=== PATIENT | male | born 1950 | race African-American/Black ===

== ENCOUNTER 2018-03-03 11:11 | Inpatient (IN) | payer OTHER ==
[2018-03-03] MEDS ORDERED: NA CHLORIDE 0.9% 1,000 ML ONE (12:17)
--- NOTE | 2018-03-03 12:43 | RAD REPORT ---
EXAM DESCRIPTION: CT - Stone Protocol - 03/03/2018 12:30 pm CLINICAL HISTORY: Flank pain. Abd pain;Flank pain COMPARISON: No comparisons TECHNIQUE: Axial images were obtained without oral or IV contrast. Lack of contrast limits solid org an and vascular assessment. The [id number] spans the entirety of the system partially obscuring uppermost abdomen and lung bases. Coronal reformatted images were obtained and reviewed. All CT scans are performed using dose optimization technique as appropriate and may include automated exposure control or mA/KV adjustment according to patient size. FINDINGS: Small bilateral pleural effusions are noted. Mild linear opacities in both posterior lung bases most compatible with subsegmental atelectasis. Imaged portions of the liver and spleen show no suspicious findings on non-contrast imaging.Cholelith iasis. The pancreas and adrenal glands are normal. No pathologic lymphadenopathy in the abdomen or pe lvis. No urinary tract stones or obstructive uropathy. Multiple renal cysts are present bilaterally, greate r on the left. No bowel obstruction, free air, free fluid or abscess. Normal appendix noted.Scattered colonic divert iculosis. Moderate fecal material is retained in the colon. Advanced degenerative change posterior disc bulge at L4-5. Large disc bulge is also suspected at L5-S 1. IMPRESSION: Pronounced degenerative findings are present at L4-5. Small bilateral pleural effusions. Cholelithiasis.
--- NOTE | 2018-03-03 13:26 | RAD REPORT ---
EXAM DESCRIPTION: VASExtrem Venous W Compress Bil03/03/2018 1:00 pm CLINICAL HISTORY: Bilateral leg pain COMPARISON: none FINDINGS: The common femoral, superficial femoral, popliteal and posterior tibial veins bilaterally are compressible and demonstrate augmentation. Doppler demonstrates good flow. A 4 x 1 centimeter Mccarty's cyst is present within the posterior left knee IMPRESSION: No evidence of deep venous thrombosis involving either lower extremity. 4 centimeter left Mccarty's cyst
--- NOTE | 2018-03-03 13:26 | RAD REPORT ---
EXAM DESCRIPTION: Toni Single View03/03/2018 1:10 pm CLINICAL HISTORY: Cough COMPARISON: none FINDINGS: The lungs appear clear of acute infiltrate. The heart is normal size IMPRESSION: No acute abnormalities displayed
[2018-03-03 14:18] LABS: Absolute Lymphocytes (CBC) 1.7 K/uL (0.7-4.9); Absolute Monocytes 0.8 K/uL (0.1-1.3); Basophils % 0.8 % (0-1.3); Eosinophils % 3.6 % (0-4.4); Hematocrit 23.2 % (39.6-49.0); Lymphocytes % 19.2 % (15.3-44.8); MCH 26.1 pg (27.0-35.0); MCV 76.9 fL (80-100); MPV 8.3 fL (7.6-11.3); Monocytes % 9.3 % (3.3-12.3); RBC Red Blood Cell Count 3.02 M/uL (4.33-5.43)
[2018-03-03 14:22] LABS: Protime INR 1.08
--- NOTE | 2018-03-03 14:34 | EKG ---
Test Date: 2018-03-03 Test Time: 12:13:38 Supervisor Painting Department: CRISTIN MEASUREMENT RESULTS: Intervals: Rate: 93 OK: 176 QRSD: 88 QT: 412 QTc: 512 [place]: P: 45 OK: 176 QRS: -3 T: 146 INTERPRETIVE STATEMENTS: Normal sinus rhythm Left ventricular hypertrophy with repolarization abnormality Prolonged QT Abnormal ECG No previous ECG available for comparison Electronically Signed On 03-03-18 14:33:31 CDT by Pool Carrasquillo
[2018-03-03 14:40] LABS: ALT/SGPT 12 U/L (12-78); AST/SGOT 12 U/L (15-37); Albumin 2.5 g/dL (3.4-5.0); Alkaline Phosphatase 60 U/L (45-117); BUN Blood Urea Nitrogen 58 mg/dL (7-18); Bicarbonate 26 mmol/L (21-32); Bilirubin Direct < 0.1 mg/dL (0-0.2); Bilirubin Total 0.3 mg/dL (0.2-1.0); CKMB Creatine Kinase MB 2.9 ng/mL (0.3-3.6); Creatine Phosphokinase 151 U/L (39-308); Glucose Level 136 mg/dL (74-106); Lipase 77 U/L (73-393); Magnesium 2.4 mg/dL (1.8-2.4); NT PRO-BNP 13442 pg/mL (<125); Potassium 3.4 mmol/L (3.5-5.1); Protein, Total 6.4 g/dL (6.4-8.2); Sodium Level 142 mmol/L (136-145)
--- NOTE | 2018-03-03 16:04 | ER ---
Nurse's Notes [facility] Name: Jamie Schulz Jr Age: 67 yrs Sex: Male : 1950 Arrival Date: 03/03/2018 Time: 11:13 Bed 20 Private MD: Out, of [facility] Diagnosis: Dizziness and giddiness;Unspecified kidney failure;Anemia, unspecified;Type 2 diabetes mellitus;Hypokalemia;Pleural effusion in conditions classified elsewhere;Cholelithiasis;Essential (primary) hypertension Presentation: 03/03 11:18 Presenting complaint: Patient states: Basically i keep getting really weak and sg fainting, I have an appointment with in about a week, but i cant wait that long. My Legs are swelling, and painful knee joint, denies trauma or injury, reports SOB at rest. Transition of care: patient was not received from another setting of care. Onset of symptoms was March 03, 2018. Risk Assessment: Do you want to hurt yourself or someone else? Patient reports no desire to harm self or others. Initial Sepsis Screen: Does the patient meet any 2 criteria? No. Patient's initial sepsis screen is negative. Does the patient have a suspected source of infection? No. Patient's initial sepsis screen is negative. Care prior to arrival: None. 11:18 Method Of Arrival: Wheelchair sg 11:18 Acuity: KIANNA 3 sg Triage Assessment: 18:50 General: Behavior is calm, cooperative. aj1 Historical: - Allergies: 11:21 No Known Allergies; sg - PMHx: 11:21 Renal Disease; Anemia; Left Knee Efusion; Essential Hypertension; sg - Immunization history:: Adult Immunizations up to date. - Social history:: Smoking status: Patient/guardian denies using tobacco. - Ebola Screening: : Patient negative for fever greater than or equal to 101.5 degrees Fahrenheit, and additional compatible Ebola Virus Disease symptoms Patient denies exposure to infectious person Patient denies travel to an Ebola-affected area in the 21 days before illness onset No symptoms or risks identified at this time. Screenin:59 Abuse screen: Denies threats or abuse. Denies injuries from another. Nutritional aj1 screening: No deficits noted. Tuberculosis screening: No symptoms or risk factors identified. 18:50 Fall Risk No fall in past 12 months (0 pts). No secondary diagnosis (0 pts). IV access [facility] (20 points). Ambulatory Aid- None/Bed Rest/Nurse Assist (0 pts). Gait- Weak (10 pts.). Mental Status- Oriented to own ability (0 pts). Total [place] Fall Scale indicates Low Risk Score (25-44 pts). As available Patient and Family Educated on Fall Prevention Program and strategies. Assessment: 11:59 General: Appears in no apparent distress. uncomfortable. Pain: Complains of pain in aj1 left leg Pain does not radiate. Pain currently is 10 out of 10 on a pain scale. Quality of pain is described as sharp, stabbing, Is continuous, Alleviated by nothing. Aggravated by nothing. Neuro: Level of Consciousness is awake, alert, obeys commands, Speech is normal. Cardiovascular: Denies chest pain, Heart tones S1 S2 present Patient's skin is warm and dry. Edema is 2+ to left ankle and right ankle. Respiratory: Reports shortness of breath on exertion Airway is patent Respiratory effort is even, unlabored, Respiratory pattern is regular, symmetrical, Breath sounds are clear bilaterally. GI: No signs and/or symptoms were reported involving the gastrointestinal system. : No signs and/or symptoms were reported regarding the genitourinary system. EENT: No signs and/or symptoms were reported regarding the EENT system. Derm: No signs and/or symptoms reported regarding the dermatologic system. Skin is normal. Musculoskeletal: No signs and/or symptoms reported regarding the musculoskeletal system. Circulation, motion, and sensation intact. 13:00 Reassessment: Patient appears in no apparent distress at this time. No changes from [facility] previously documented assessment. Patient and/or family updated on plan of care and expected duration. Pain level reassessed. Patient is alert, oriented x 3, equal unlabored respirations, skin warm/dry/pink. 13:33 Reassessment: Notified Dr. Gaines that patient has been stuck multiple times by [facility] multiple staff members to attempt to initiate IV access, but we have been unable to obtain IV access. Order received to set up for EJ IV insertion by Dr. Gaines. 14:29 Reassessment: Dr. Gaines notified of critical lab value, Hgb 7.9. ss 14:30 Reassessment: Patient and/or family updated on plan of care and expected duration. Pain [facility] level reassessed. General: Appears in no apparent distress. comfortable. Neuro: Level of Consciousness is awake, alert, obeys commands. Cardiovascular: Patient's skin is warm and dry. Respiratory: Airway is patent Respiratory effort is even, unlabored, Respiratory pattern is regular, symmetrical. Derm: No signs and/or symptoms reported regarding the dermatologic system. Skin is pink, warm \T\ dry. normal. Musculoskeletal: No signs and/or symptoms reported regarding the musculoskeletal system. Circulation, motion, and sensation intact. 15:30 Reassessment: Patient appears in no apparent distress at this time. No changes from aj1 previously documented assessment. Patient and/or family updated on plan of care and expected duration. Pain level reassessed. Patient is alert, oriented x 3, equal unlabored respirations, skin warm/dry/pink. 16:35 Reassessment: Notified Dr. Gaines of patient blood pressure 215/110. Orders received. aj1 16:53 Reassessment: Patient and/or family updated on plan of care and expected duration. Pain aj1 level reassessed. General: Appears in no apparent distress. comfortable. Neuro: Level of Consciousness is awake, alert, obeys commands. Cardiovascular: Patient's skin is warm and dry. Cardiovascular: Rhythm is sinus tachycardia. Respiratory: Airway is patent Respiratory effort is even, unlabored, Respiratory pattern is regular, symmetrical. Derm: Skin is pink, warm \T\ dry. normal. Musculoskeletal: Circulation, motion, and sensation intact. 18:00 Reassessment: Patient appears in no apparent distress at this time. No changes from aj1 previously documented assessment. Patient and/or family updated on plan of care and expected duration. Pain level reassessed. Patient is alert, oriented x 3, equal unlabored respirations, skin warm/dry/pink. 18:50 Reassessment: Patient appears in no apparent distress at this time. No changes from aj1 previously documented assessment. Patient and/or family updated on plan of care and expected duration. Pain level reassessed. Patient is alert, oriented x 3, equal unlabored respirations, skin warm/dry/pink. 19:05 Reassessment: No changes from previously documented assessment. Patient and/or family bs1 updated on plan of care and expected duration. Pain level reassessed. Patient is alert, oriented x 3, equal unlabored respirations, skin warm/dry/pink. Report received from DANILO Watson, patient pending admission to 4th floor. Report called by day shift nurse. 20:00 Reassessment: Patient appears in no apparent distress at this time. Patient and/or bs1 family updated on plan of care and expected duration. Pain level reassessed. Patient is alert, oriented x 3, equal unlabored respirations, skin warm/dry/pink. Patient understands POC/pending admission to 4th floor. Vital Signs: 11:21 BP 165 / 87; Pulse 96; Resp 22 S; Temp 99.2; Pulse Ox 100% on R/A; Weight 99.79 kg (R); sg Pain 10/10; 12:20 BP 183 / 94; Pulse 95; Resp 19; Pulse Ox 97% on R/A; dh3 13:12 BP 180 / 92; Pulse 95; Resp 20; Pulse Ox 95% on R/A; dh3 16:35 BP 215 / 110; Pulse 102; Resp 20; Pulse Ox 100% ; aj1 16:52 BP 147 / 106; Pulse 103; Resp 20; Pulse Ox 100% on R/A; aj1 18:16 BP 147 / 79; Pulse 93; Resp 18; Temp 98.9(T); Pulse Ox 98% on R/A; aj1 19:30 BP 157 / 76; Pulse 91; Resp 20; Temp 98.8(O); Pulse Ox 100% on R/A; Pain 0/10; bs1 ED Course: 11:13 Patient arrived in ED. sb2 11:13 Out, [facility] is Private Physician. sb2 11:13 Arm band placed on. EKG completed in triage. Results shown to MD. sg 11:19 Triage completed. sg 11:26 Amari Gaines MD is Attending Physician. [facility] 11:37 Shirley Marinelli, DANILO is Primary Nurse. aj1 11:55 Missed attempt(s): 22 gauge in right antecubital area. Bleeding controlled, band aid aj1 applied, catheter tip intact. 11:58 Missed attempt(s): 22 gauge in left forearm. Bleeding controlled, band aid applied, aj1 catheter tip intact. 11:59 Patient has correct armband on for positive identification. gambling monitor on. Pulse aj1 ox on. NIBP on. 11:59 No provider procedures requiring assistance completed. aj1 12:12 Radiology exam delayed due to IV insertion attempt and/or patient not having nj appropriate IV at this time. 12:13 Radiology exam delayed due to getting EKG done at this time. nj 12:22 First set of blood cultures drawn by me. Missed attempt(s): 22 gauge in left wrist. dh3 Bleeding controlled, band aid applied, catheter tip intact. 12:25 Note: US DELAYED DUE TO PT GOING TO CT. hr 12:[address] via stretcher. nj 12:29 CT completed. Patient tolerated procedure well. Patient moved back from CT. nj 12:29 Patient taken to ultrasound. nj 12:30 CT Stone Protocol In Process Unspecified. EDMS 12:33 EKG done, by bicycle technician. reviewed by Amari Gaines MD. at1 12:57 US Extremity Venous W Compression Monty In Process Unspecified. EDMS 13:00 Patient moved to radiology via stretcher. jb2 13:04 XRAY Chest (1 view) In Process Unspecified. EDMS 13:04 X-ray completed. Patient tolerated procedure well. jb2 13:07 Patient moved back from radiology. jb2 13:29 Missed attempt(s): 24 gauge in right hand. ph 15:30 T\T\S collected, blood band applied to patient. dh3 16:01 Oralia Huston MD is Hospitalizing Provider. jonas 18:23 Patient admitted, IV remains in place. aj1 18:24 Report given to Danilo Chaudhry on 4th floor. aj1 Administered Medications: 14:43 Drug: NS 0.9% 1000 ml Route: IV; Rate: 125 ml/hr; Site: Other; aj1 20:06 Follow up: IV Status: Infusion continued upon admission bs1 16:47 Drug: HydrALAZINE 50 mg Route: PO; aj1 19:00 Follow up: Response: No adverse reaction; Blood pressure is lowered aj1 16:48 Drug: hydrALAZINE 10 mg Route: IV; Rate: per protocol; Site: Other; aj1 18:59 Follow up: Response: No adverse reaction; Blood pressure is lowered; IV Status: aj1 Completed infusion 16:49 Drug: Coreg 25 mg Route: PO; aj1 18:59 Follow up: Response: No adverse reaction; Blood pressure is lowered aj1 Outcome: 16:04 Decision to Hospitalize by Provider. jonas 20:05 Admitted to [facility] accompanied by nurse, via wheelchair, room 415, with chart, Report bs1 called to Day shift nurse called report to day shift nurse on 4th floor. 20:05 Condition: stable 20:05 Instructed on the need for admit, Demonstrated understanding of instructions. 20:06 Patient left the ED. bs1 Signatures: Dispatcher [employer] EDShirley Tracy, RN RN aj1 Carlo Encarnacion RN RN Amari Billingsley MD MD cha Buechter, Jesse jb2 Ralf, Mishel sj Bassem, Judith hr Jennifer Rob RN RN ss [place], tractor operator battery EKG Tat1 Ewa Molina RN RN [facility], Kristen [place] 3 Sera Lay RN RN bs1 Flower Graham2 Corrections: (The following items were deleted from the chart) 12:13 12:[address] brett 13:12 12:45 BP 180 / 92; Pulse 95bpm; Resp 20bpm; Pulse Ox 95% RA; dh3 dh3 13:19 12:[address] Patient moved back from [facility]. hr hr
--- NOTE | 2018-03-03 16:05 | EDPHYS ---
Physician Documentation [facility] Emergency Department Name: Jamie Schulz Jr Age: 67 yrs Sex: Male : 1950 Arrival Date: 03/03/2018 Time: 11:13 Bed 20 Private MD: Out, [facility] ED Physician Amari Gaines HPI: 03/03 12:04 This 67 yrs old Black Male presents to ER via Wheelchair with complaints of Dizziness, jonas Leg Pain, Side Pain. 12:04 The patient presents with dizziness, generalized weakness. Onset: The symptoms/episode jonas began/occurred 3 day(s) ago. Context: occurred at home. Modifying factors: The symptoms are alleviated by nothing, the symptoms are aggravated by nothing. Associated signs and symptoms: Pertinent positives: shortness of breath. Severity of symptoms: At their worst the symptoms were mild moderate in the emergency department the symptoms are unchanged. Patient's baseline: Neuro: alert and fully oriented. The patient has experienced similar episodes in the past, a few times. Historical: - Allergies: 11:21 No Known Allergies; sg - PMHx: 11:21 Renal Disease; Anemia; Left Knee Efusion; Essential Hypertension; sg - Immunization history:: Adult Immunizations up to date. - Social history:: Smoking status: Patient/guardian denies using tobacco. - Ebola Screening: : Patient negative for fever greater than or equal to 101.5 degrees Fahrenheit, and additional compatible Ebola Virus Disease symptoms Patient denies exposure to infectious person Patient denies travel to an Ebola-affected area in the 21 days before illness onset No symptoms or risks identified at this time. ROS: 12:04 Constitutional: Negative for fever, chills, and weight loss, Eyes: Negative for injury, jonas pain, redness, and discharge, ENT: Negative for injury, pain, and discharge, Neck: Negative for injury, pain, and swelling, Cardiovascular: Negative for chest pain, palpitations, and edema, Respiratory: Negative for shortness of breath, cough, wheezing, and pleuritic chest pain, Abdomen/GI: Negative for abdominal pain, nausea, vomiting, diarrhea, and constipation, : Negative for injury, bleeding, discharge, and swelling, Skin: Negative for injury, rash, and discoloration, Neuro: Negative for headache, weakness, numbness, tingling, and seizure, Psych: Negative for depression, anxiety, suicide ideation, homicidal ideation, and hallucinations, Allergy/Immunology: Negative for hives, rash, and allergies, Endocrine: Negative for neck swelling, polydipsia, polyuria, polyphagia, and marked weight changes, Hematologic/Lymphatic: Negative for swollen nodes, abnormal bleeding, and unusual bruising. 12:04 Back: Positive for flank pain, on the left. 12:04 MS/extremity: Positive for swelling, of the left leg. Exam: 12:04 Constitutional: This is a well developed, well nourished patient who is awake, alert, jonas and in no acute distress. Head/Face: Normocephalic, atraumatic. Eyes: Pupils equal round and reactive to light, extra-ocular motions intact. Lids and lashes normal. Conjunctiva and sclera are non-icteric and not injected. Cornea within normal limits. Periorbital areas with no swelling, redness, or edema. ENT: Nares patent. No nasal discharge, no septal abnormalities noted. Tympanic membranes are normal and external auditory canals are clear. Oropharynx with no redness, swelling, or masses, exudates, or evidence of obstruction, uvula midline. Mucous membranes moist. Neck: Trachea midline, no thyromegaly or masses palpated, and no cervical lymphadenopathy. Supple, full range of motion without nuchal rigidity, or vertebral point tenderness. No Meningismus. Chest/axilla: Normal chest wall appearance and motion. Nontender with no deformity. No lesions are appreciated. Cardiovascular: Regular rate and rhythm with a normal S1 and S2. No gallops, murmurs, or rubs. Normal PMI, no JVD. No pulse deficits. Respiratory: Lungs have equal breath sounds bilaterally, clear to auscultation and percussion. No rales, rhonchi or wheezes noted. No increased work of breathing, no retractions or nasal flaring. Abdomen/GI: Soft, non-tender, with normal bowel sounds. No distension or tympany. No guarding or rebound. No evidence of tenderness throughout. Male : Normal genitalia with no discharge or lesions. Skin: Warm, dry with normal turgor. Normal color with no rashes, no lesions, and no evidence of cellulitis. Neuro: Awake and alert, GCS 15, oriented to person, place, time, and situation. Cranial nerves II-XII grossly intact. Motor strength 5/5 in all extremities. Sensory grossly intact. Cerebellar exam normal. Normal gait. Psych: Awake, alert, with orientation to person, place and time. Behavior, mood, and affect are within normal limits. 12:04 Back: pain, that is mild, that is moderate, ROM is normal, normal spinal alignment noted, CVA tenderness, that is mild, that is moderate, is noted on the left, vertebral tenderness, is not appreciated. 12:04 Musculoskeletal/extremity: DVT Exam: no pain, negative Homans' sign noted on exam, no appreciated bluish discoloration, no erythema, no increased warmth, swelling, tenderness. Vital Signs: 11:21 BP 165 / 87; Pulse 96; Resp 22 S; Temp 99.2; Pulse Ox 100% on R/A; Weight 99.79 kg (R); sg Pain 10/10; 12:20 BP 183 / 94; Pulse 95; Resp 19; Pulse Ox 97% on R/A; dh3 13:12 BP 180 / 92; Pulse 95; Resp 20; Pulse Ox 95% on R/A; dh3 16:35 BP 215 / 110; Pulse 102; Resp 20; Pulse Ox 100% ; aj1 16:52 BP 147 / 106; Pulse 103; Resp 20; Pulse Ox 100% on R/A; aj1 18:16 BP 147 / 79; Pulse 93; Resp 18; Temp 98.9(T); Pulse Ox 98% on R/A; aj1 19:30 BP 157 / 76; Pulse 91; Resp 20; Temp 98.8(O); Pulse Ox 100% on R/A; Pain 0/10; bs1 Procedures: 14:00 Peripheral line: by aseptic technique a peripheral line was placed in the left external jonas jugular vein. MDM: 11:26 Patient medically screened. [facility] 12:07 Data reviewed: vital signs, nurses notes, lab test result(s), EKG, radiologic studies, [facility] CT scan, plain films. 03/03 12:03 Order name: Basic Metabolic Panel; Complete Time: 14:53 [facility] 03/03 12:03 Order name: CBC with Diff; Complete Time: 14:53 [facility] 03/03 12:03 Order name: Ckmb; Complete Time: 14:53 [facility] 03/03 12:03 Order name: CPK; Complete Time: 14:53 [facility] 03/03 12:03 Order name: LFT's; Complete Time: 14:53 [facility] 03/03 12:03 Order name: Magnesium; Complete Time: 14:53 [facility] 03/03 12:03 Order name: NT PRO-BNP; Complete Time: 14:53 [facility] 03/03 12:03 Order name: PT-INR; Complete Time: 14:53 [facility] 03/03 12:03 Order name: Ptt, Activated; Complete Time: 14:53 [facility] 03/03 12:03 Order name: Troponin (emerg Dept Use Only); Complete Time: 14:53 [facility] 03/03 12:03 Order name: Lipase; Complete Time: 14:53 [facility] 03/03 12:03 Order name: Blood Culture Adult (2) [facility] 03/03 12:03 Order name: Urine Culture [facility] 03/03 14:54 Order name: Type And Screen [facility] 03/03 12:03 Order name: XRAY Chest (1 view); Complete Time: 13:54 [facility] 03/03 12:03 Order name: EKG; Complete Time: 12:04 [facility] 03/03 12:03 Order name: Cardiac monitoring; Complete Time: 12:10 [facility] 03/03 12:03 Order name: EKG - Nurse/Tech; Complete Time: 12:25 [facility] 03/03 12:03 Order name: O2 Per Protocol; Complete Time: 12:10 [facility] 03/03 12:03 Order name: O2 Sat Monitoring; Complete Time: 12:10 [facility] 03/03 12:03 Order name: CT Stone Protocol; Complete Time: 13:54 [facility] 03/03 12:03 Order name: US Extremity Venous W Compression Monty; Complete Time: 13:54 [facility] 03/03 16:10 Order name: CONS Physician Consult EDMS 03/03 16:42 Order name: ABO/RH no charge EDMS Administered Medications: 14:43 Drug: NS 0.9% 1000 ml Route: IV; Rate: 125 ml/hr; Site: Other; aj1 20:06 Follow up: IV Status: Infusion continued upon admission bs1 16:47 Drug: HydrALAZINE 50 mg Route: PO; aj1 19:00 Follow up: Response: No adverse reaction; Blood pressure is lowered aj1 16:48 Drug: hydrALAZINE 10 mg Route: IV; Rate: per protocol; Site: Other; aj1 18:59 Follow up: Response: No adverse reaction; Blood pressure is lowered; IV Status: aj1 Completed infusion 16:49 Drug: Coreg 25 mg Route: PO; aj1 18:59 Follow up: Response: No adverse reaction; Blood pressure is lowered aj1 Disposition: 03/03/18 16:04 Hospitalization ordered by Oralia Huston for Observation. Preliminary diagnosis are Dizziness and giddiness, Unspecified kidney failure, Anemia, unspecified, Type 2 diabetes mellitus, Hypokalemia, Pleural effusion in conditions classified elsewhere, Cholelithiasis, Essential (primary) hypertension. - Bed requested for Telemetry/MedSurg (observation). - Status is Observation. bs1 - Condition is Fair. - Problem is new. - Symptoms have improved. UTI on Admission? No Signatures: Dispatcher [employer] EDMS Shirley Marinelli RN RN aj1 Maryellen Kong RN RN dw Carlo Encarnacion RN RN sg Anderson, Corey, MD MD cha Salazar, Brittany, RN RN bs1 Mandie Valiente Corrections: (The following items were deleted from the chart) 16:33 16:04 Hospitalization Ordered by Oralia Huston MD for Observation. Preliminary diagnosis jonas is Dizziness and giddiness; Unspecified kidney failure; Anemia, unspecified; Type 2 diabetes mellitus; Hypokalemia; Pleural effusion in conditions classified elsewhere; Cholelithiasis. Bed requested for Telemetry/MedSurg (observation). Status is Observation. Condition is Fair. Problem is new. Symptoms have improved. UTI on Admission? No. jonas 16:43 16:33 03/03/2018 16:04 Hospitalization Ordered by Oralia Huston MD for Observation. eb Preliminary diagnosis is Dizziness and giddiness; Unspecified kidney failure; Anemia, unspecified; Type 2 diabetes mellitus; Hypokalemia; Pleural effusion in conditions classified elsewhere; Cholelithiasis; Essential (primary) hypertension. Bed requested for Telemetry/MedSurg (observation). Status is Observation. Condition is Fair. Problem is new. Symptoms have improved. UTI on Admission? No. jonas 17:56 16:43 03/03/2018 16:04 Hospitalization Ordered by Oralia Huston MD for Observation. dw Preliminary diagnosis is Dizziness and giddiness; Unspecified kidney failure; Anemia, unspecified; Type 2 diabetes mellitus; Hypokalemia; Pleural effusion in conditions classified elsewhere; Cholelithiasis; Essential (primary) hypertension. Bed requested for Telemetry/MedSurg (observation). Status is Observation. Condition is Fair. Problem is new. Symptoms have improved. UTI on Admission? No. eb 20:06 17:56 03/03/2018 16:04 Hospitalization Ordered by Oralia Huston MD for Observation. bs1 Preliminary diagnosis is Dizziness and giddiness; Unspecified kidney failure; Anemia, unspecified; Type 2 diabetes mellitus; Hypokalemia; Pleural effusion in conditions classified elsewhere; Cholelithiasis; Essential (primary) hypertension. Bed requested for Telemetry/MedSurg (observation). Status is Observation. Condition is Fair. Problem is new. Symptoms have improved. UTI on Admission? No. dw
[2018-03-03] MEDS ORDERED: ACETAMINOPHEN 500 MG TAB PO PRN (16:31)
[2018-03-03] MEDS ORDERED: ONDANSETRON 4 MG/2 ML VIAL IV PRN (16:31)
[2018-03-03] MEDS ORDERED: HYDRALAZINE HCL 20 MG/ML VIAL ONE (16:43)
[2018-03-03] MEDS ORDERED: CARVEDILOL 6.25 MG TAB ONE (16:43)
[2018-03-03] MEDS ORDERED: HYDRALAZINE HCL 10 MG TABLET ONE (16:44)
[2018-03-03] MEDS ORDERED: ENOXAPARIN 30 MG/0.3 ML SQ SCH (17:00)
[2018-03-03] MEDS: NA CHLORIDE 0.9% 1,000 ML IV SCH (20:08)
[2018-03-03] MEDS: INSULIN -REGULAR HUMAN 50 UNIT/0.5 ML ML SQ SCH (20:54)
[2018-03-03 21:16] VITALS: BMI 26.9
[2018-03-03] MEDS ORDERED: CARVEDILOL 12.5 MG TAB PO ONE (22:52)
[2018-03-03] MEDS ORDERED: HYDRALAZINE HCL 20 MG/ML VIAL IV PRN (22:53)
--- NOTE | 2018-03-03 23:20 | HP ---
Date of Admission: 03/03/2018 Primary Care Physician: At the [place]. Consultants: Marciano Valiente M.D. with Nephrology. Code Status: Full. No medical power of coffee supervisor or living will. History Of Present Illness: The patient is a 67-year-old male with past medical history of hyperlipi demia, hypertension, diabetes, chronic kidney disease, neuropathy, who was in his usual state of heal th until few days prior to admission when the patient has been feeling generalized malaise, weakness, and some dizziness. The patient also felt some shortness of breath. Denies any chest pain. No fev er, cough, chills, or ill contacts. The patient comes into the ER for further evaluation. Upon arri christo, his workup revealed normal white count and a hemoglobin of 7.9. Creatinine was elevated at 6. Troponin was 0.08. Chest x-ray did not show any abnormalities. CT scan of the abdomen did show some atelectasis and bilateral small pleural effusions. Degenerative changes present at L4-L5, and yolanda lithiasis. The patient was then referred for admission. When seen in the ER, he was awake, alert, o riented x3, not in any acute distress. Past Medical History: Hypertension, hyperlipidemia, diabetes, chronic kidney disease, neuropathy, an d hypertension. Past Surgical History: None. Allergies: NO KNOWN DRUG ALLERGIES. Medications: List reviewed. Social History: The patient quit smoking approximately 2 years ago. Used to smoke on and off for th e past 15-20 years. No alcohol use or illicit drug use. Family History: Mom had DVT in the left leg. Review of Systems: An 11-point system review is negative except as per HPI. Physical Examination: Vital Signs: Blood pressure 165/87, respirations 22, pulse 96, temperature 99.2, O2 100% on room air . General: Awake, alert, oriented x3, in some mild distress. Elderly male, somewhat ill-appearing. HEENT: Normocephalic, atraumatic. PERRLA. EOMI. Dry mucous membranes. Oropharynx is clear. Poor dentition. Conjunctiva is anicteric. Neck: Supple. Trachea midline. CV: S1, S2. No murmurs. Regular rate and rhythm. Peripheral pulses present bilaterally. Respiratory: Diminished breath sounds at the bases. Some crackles are heard. No wheezing. No use of accessory muscles. Gastrointestinal: Abdomen is soft, nontender, and nondistended. Positive bowel sounds. No guarding or rigidity. Extremities: No clubbing or cyanosis. The patient does have lower extremity edema, 1+ bilaterally. No calf tenderness. Skin: No rashes. Normal skin turgor. Psych: Mood is okay. Affect is full. Insight and judgment are fair. Neuro: Cranial nerves 2 through 12 intact grossly. The patient does have some weakness of the left lower extremity, 3/5 strength. Right lower extremity and bilateral upper extremities with 5/5 streng th. Speech is normal. No facial asymmetry. Laboratory Data: Sodium 142, potassium 3.4, chloride 109, CO2 of 26, BUN 58, creatinine 6, glucose 1 36, calcium 8.4, magnesium 2.4, AST 12, ALT 12. Troponin 0.08. BNP 79220, albumin 2.5, INR 1.08. W BC 8.9, H and H 7.9 and 23.2, platelets 209, neutrophils 67%. CT scan of abdomen and pelvis shows pr onounced degenerative findings present at L4-L5, small bilateral pleural effusions, cholelithiasis. EKG shows normal sinus rhythm, rate of 93, left ventricular hypertrophy with repolarization abnormali ty. Venous ultrasound Doppler shows no evidence of DVT in either lower extremity, [address] is present. Assessment And Plan: A 67-year-old male with; 1.Acute on chronic kidney injury. The patient does have chronic kidney disease, has been following at the [place]. The patient was supposed to see Dr. Joseph as an outpatient; however, has not made it to e appointment. For now, we will initiate workup and obtain renal ultrasound. We will start on IV fl uids and Dr. Valiente has been consulted. 2.Elevated troponin level, may be secondary to above. No chest pain. EKG does show some left ventr icular hypertrophy with repolarization defect. We will consult Cardiology. Monitor on cardiac telem etry. 3.Hypokalemia. 4.Anemia, microcytic, hypochromic, likely anemia of chronic disease. We will obtain stool occult to rule out gastrointestinal bleed. Monitor H and H. transfuse as needed. 5.Essential hypertension, uncontrolled. We will resume home medications as appropriate. 6.Hyperlipidemia. 7.Diabetes mellitus type 2. We will start on sliding scale insulin. The patient does have neuropat hy and hyperglycemia, [id number]. 8.Gastrointestinal and deep venous thrombosis prophylaxes with PPI and Lovenox renally dosed. Plan: Admit the patient to Med-Surg, place as inpatient. MARY Voice ID: [id number]
[2018-03-04] MEDS: NA CHLORIDE 0.9% 1,000 ML IV SCH ×4 (01:20→23:00)
--- NOTE | 2018-03-04 01:44 | CON ---
Date of Consultation: 03/03/2018 Reason For Consultation: Elevated BUN and creatinine, electrolyte imbalance. History Of Present Illness: This is a 67-year-old black gentleman with significant past medical hist ory of diabetes, diagnosis back in 2009, complicated with retinopathy, legally blind on the right eye , neuropathy, hypertension, hyperlipidemia, no osteoarthritis, chronic kidney disease stage 4. Accor ding to him, [facility] and [facility] 2 months ago that his GFR around 17. The shamir neal is supposed to see Dr. Joseph as outpatient but still did not see her yet according to him estela hoyos she did not arrange for transportation. The patient recently visited the ER at [facility] for dizziness, treated, and discharged, came to the hospital complaining from dizzy, leg pain, nausea wit hout any vomiting. No fever. No chills. Lab showed elevated BUN and creatinine and hypertension, f or that reason being admitted. The patient denied taking any nonsteroidal. No IV contrast. No recent change in his medications. Allergies: NO KNOWN DRUG ALLERGY. Social History: The patient is active. Denied alcohol. Denied drug abuse. No alcohol, no smoking. Past Medical History: 1.Chronic kidney disease stage 4. 2.Hypertension. 3.Diabetes, complicated with neuropathy and retinopathy, legally blind on right eye. Past Surgical History: None contribute. Family History: Positive for diabetes and hypertension. Review of Systems: Head and Neck: No red eye. No ear pain. GI: Has nausea, vomiting. : No polyuria. No dysuria. No hematuria. PHOTO TUBE ASSEMBLER: Not applicable. Respiratory: No shortness of breath. Cardiovascular: No chest pain. Neuro: Has neuropathy. Musculoskeletal: No joint pain. Endocrine: No polydipsia. Skin: No rash. Current Medications: As outpatient include docusate, atorvastatin, aspirin, carvedilol, hydrocodone, KCl, magnesium oxide, amlodipine, naproxen, lisinopril 40, gabapentin, and amitriptyline. Medications: Current medications in the hospital include insulin and IV fluid. Physical Examination: Vital Signs: When I saw the patient, blood pressure 181/87, pulse of 92. Chest: Clear to auscultation. Heart: S1, S2. Regular. Abdomen: Soft, nontender. Extremities: Plus edema. Neuro: Alert and oriented x3. No tremor. Laboratory Data: WBC 8.9, H and H 7.9/23.2, platelets 209. Sodium 142, potassium 3.4, bicarb 26, BU N 58, creatinine of 6, GFR of 11, calcium 8.4, magnesium of 2.4. BNP 86314. Albumin 2.5. Chest x-r ay; no cardiomegaly, no congestion. Assessment And Plan: 1.Acute kidney injury on advanced chronic kidney disease, possible secondary to ASHLY inhibitor and no nsteroidal use of naproxen, but he is under advanced chronic kidney disease stage 4 as the patient sa id that the GFR around 17 secondary to diabetes nephropathy to rule out obstruction or other causes g iving the anemia to rule out light chain disease. I am going to go ahead and send for full workup an d we will follow up the patient. Discontinue naproxen and lisinopril and we will follow up the patie nt. 2.I had a long discussion with the patient that if kidney function did not improve, may need to init iate renal replacement therapy. The patient verbalized understanding and agreed. 3.Hypertension, uncontrolled giving the presence of hypokalemia even in spite of the potassium suppl ement and in spite of advanced kidney disease and the blood test with alkalosis, hyperaldosteronism n eeds to be ruled out. I am going to go ahead and send for aldosterone and plasma renin activity. We will discontinue lisinopril and we will follow up. 4.I going to add Norvasc. We will consider adding Aldactone after obtaining the primary lab and we will follow up. 5.Anemia with the presence of acute kidney injury, light chain disease needs to be ruled out. We wi ll send for full workup. 6.Hypokalemia with presence of acute kidney injury and alkalosis and hypertension, hyperaldosteronis m needs to be rule out. We will send for TSH, magnesium, and aldosterone. We will follow up. 7.Elevated BNP, possible secondary to hypertension. We will follow up with the primary. 8.Gastritis, possible secondary to uremia. We will continue symptomatic treatment. We will follow up with the primary. Thank you Dr. Huston for allowing us to participate in the care of your patient. BRETT/CHARLA Voice ID: [id number] Report ID: [id number]
[2018-03-04 05:31] LABS: Absolute Lymphocytes (CBC) 1.3 K/uL (0.7-4.9); Absolute Monocytes 0.6 K/uL (0.1-1.3); Absolute Neutrophil 4.5 K/uL (1.8-8.0); Basophils % 0.7 % (0-1.3); Eosinophils % 3.9 % (0-4.4); Hematocrit 18.5 % (39.6-49.0); Lymphocytes % 18.6 % (15.3-44.8); MCH 27.1 pg (27.0-35.0); MPV 7.6 fL (7.6-11.3); Monocytes % 9.3 % (3.3-12.3)
[2018-03-04 06:32] LABS: Albumin 2.2 g/dL (3.4-5.0); Bilirubin Total 0.2 mg/dL (0.2-1.0); Ferritin 436.6 ng/mL (26-388); Folic Acid, (Folate) 10.9 ng/mL (3.1-17.5); Magnesium 2.1 mg/dL (1.8-2.4); Phosphorus 4.3 mg/dL (2.5-4.9); Potassium 3.3 mmol/L (3.5-5.1); Protein, Total 5.3 g/dL (6.4-8.2); Thyroid Stimulating Hormone 2.32 uIU/mL (0.36-3.74)
--- NOTE | 2018-03-04 07:04 | CON ---
Identification: 67-year-old man. Attending Physician: Dr. Denson. Chief Complaint: Generalized aches, fatigue and lethargy. Reason For Cardiology Consult: Abnormal troponin. History Of Present Illness: Mr. Schulz is a gentleman, who has had diabetes for about 8 years, he has had poor control; also hypertension, tobacco use. He has developed retinopathy and renal failure . He was instructed to see a third grade teacher, but apparently could not get a ride, so he has not seen a third grade teacher yet. He has been a patient of the [facility]. Medications: We know he has been on nortriptyline, naproxen, lisinopril gabapentin, amlodipine, magn esium, potassium, hydrocodone, docusate, carvedilol, atorvastatin, and aspirin. Allergies: HE HAS NO ALLERGIES. Social History: Tobacco use continues. Physical Examination: Vital Signs: Height 6 feet 2 inches, 210 pounds. General: He has a disheveled, unkempt appearance and ill-looking overall general appearance. Lungs: Clear. Heart: Exam reveals a systolic murmur. It sounds like aortic sclerosis or stenosis. He denies any history of bypass surgery. There is no sternal scar. Extremities: Reveal diminished distal pulses palpable. Laboratory Data: Reveals a hemoglobin of 6.5, it was 7.9 yesterday, transfusion is planned. His kym telet count is normal, but it is slightly changed. We should probably stop enoxaparin. The falling platelet count, even a mild shift we should be concerned there could be heparin-induced thrombocytope jackson. We could give him different forms of DVT prophylaxis other than enoxaparin, but with him maycol jenkins, I would recommend sequential compression devices on his legs. The patient's other laboratory fin dings are troponin of 0.08, creatinine of 6, potassium 3.4. Blood sugars 136, 164 and terminal proBN P is over 13,000. Impression: My impression is the patient has probably very severe anemia, obviously very severe stephany l dysfunction, probably gastrointestinal bleeding. He probably needs to be on a proton pump inhibito r. He had a transfusion and he needs to get started on dialysis for the troponin. I do not think we should yonis down on a troponin of 0.08 without chest pain or something pointing this to be an acute coronary syndrome. An echocardiogram is in order to see if he has aortic stenosis. ANGELA/CHARLA Voice ID: [id number] Report ID: [id number]
[2018-03-04] MEDS: INSULIN -REGULAR HUMAN 50 UNIT/0.5 ML ML SQ SCH ×4 (07:30→21:00)
[2018-03-04] MEDS ORDERED: PNEUMOCOCCAL VACCINE 0.5 ML IMVAC ONE (08:00)
[2018-03-04] MEDS ORDERED: NA CHLORIDE 0.9% 250 ML ONE (09:41)
--- NOTE | 2018-03-04 09:59 | P.PN ---
Subjective Date of Service: 03/04/18 Subjective: No new changes, No C/O voiced Patient is severely anemic; continue with monitoring renal function closely Review of Systems 10-point ROS is otherwise unremarkable Physical Examination - Vital Signs Temperature: 98.2 F Blood Pressure: 171/78 Pulse: 81 Respirations: 16 Pulse Ox (%): 98 - Physical Exam General: Alert, In no apparent distress, Oriented x3 Respiratory: Clear to auscultation bilaterally, Normal air movement Cardiovascular: Regular rate/rhythm, Normal S1 S2, No murmurs Gastrointestinal: Soft and benign, Non-distended, No tenderness - Studies Laboratory Data (last 24 hrs) 03/03/18 14:00: PT 12.8 H, INR 1.08, APTT 24.7 03/03/18 14:00: WBC 8.9, Hgb 7.9 L*, Hct 23.2 L, Plt Count 209 03/03/18 14:00: Sodium 142, Potassium 3.4 L, BUN 58 H, Creatinine 6.00 H*, Glucose 136 H, Magnesium 2.4, Total Bilirubin 0.3, AST 12 L, ALT 12, Alkaline Phosphatase 60, Lipase 77 Medications List Reviewed: Yes Assessment & Plan - Problems (Diagnosis) (1) SHRADDHA (acute kidney injury) Current Visit: Yes Status: Acute (2) CRF (chronic renal failure) Onset Date: 03/04/18 Current Visit: Yes Status: Acute (3) Hypertension Onset Date: 03/04/18 Current Visit: Yes Status: Acute (4) Anemia due to acute blood loss Current Visit: Yes Status: Acute - Plan PLAN: 1. Transfuse 1u PRBC 2. Renal consult 3. Monitor labs closely 4. cardiology consult Discharge Plan: Home Plan to discharge in: Greater than 2 days - Advance Directives Does patient have a Living Will: No Does patient have a Durable POA for Healthcare: No - Code Status/Comfort Care Code Status Assessed: Yes Code Status: Full Code Critical Care: No Time Spent Managing PTS Care (In Minutes): 30
[2018-03-04] MEDS: AMLODIPINE 10 MG TAB PO SCH (10:04)
[2018-03-04 10:22] LABS: Urine Appearance CLOUDY; Urine Bilirubin NEGATIVE (NEG); Urine Blood TRACE (NEG); Urine Color YELLOW; Urine Glucose TRACE (NEG); Urine Protein 3+ (NEG); Urine Urobilinogen 0.2 mg/dL (0.2-1.0); Urine pH 5.5 (5.0-7.0)
[2018-03-04 10:32] LABS: Urine Microscopic Reflex ORDER UMIC; Urine Protein/Creatinine Ratio 3.9 ratio (<0.15)
--- NOTE | 2018-03-04 10:58 | RAD REPORT ---
EXAM DESCRIPTION: US - Renal Ultrasound-Complete - 03/04/2018 10:52 am CLINICAL HISTORY: SHRADDHA COMPARISON: Stone Protocol dated 03/03/2018 FINDINGS: Both kidneys are echogenic. Benign cortical cysts are present in both kidneys, the largest on the right inferior pole measuring 3.8 x 2.7 cm. The largest cyst on the left is laterally located measuring 4.7 x 4.2 cm. The right kidney measures 11.8 x 6.2 x 5.1 cm. No hydronephrosis solid mass or perinephric fluid. The left kidney measures 11.9 x 7.0 x 5.9 cm. No hydronephrosis, solid mass or perinephric fluid. The urinary bladder is incompletely distended without gross abnormality seen. IMPRESSION: Bilateral echogenic kidneys noted compatible with underlying medical renal disease. Benign bilateral renal cysts.
[2018-03-04 11:47] LABS: Urine Coarse Granular Casts >10 /LPF (NONE SEEN); Urine Culture Reflex Order NOT NEEDED
[2018-03-04 11:48] LABS: Urine Amorphous Sediment 1+ /HPF (NONE SEEN); Urine Bacteria NONE SEEN /HPF (NONE SEEN)
--- NOTE | 2018-03-04 12:44 | ECHO ---
HEIGHT: 6 ft 2 in WEIGHT: 210 lb 0 oz DATE OF STUDY: 03/04/[address]: Pool Carrasquillo MD 2-DIMENSIONAL: YES M.MODE: YES DOPPLER: YES COLOR FLOW: YES TDS: NO PORTABLE: NO DEFINITY: NO BUBBLE STUDY: NO DIAGNOSIS: AORTIC VALVE DISEASE CARDIAC HISTORY: CATHERIZATION: NO SURGERY: NO PROSTHETIC VALVE: NO PACEMAKER: NO MEASUREMENTS (cm) DIASTOLIC (NORMALS) SYSTOLIC (NORMALS) IVSd 1.3 (0.6-1.2) LA Diam (1.9-4.0) LVEF 73% LVIDd 4.3 (3.5-5.7) LVIDs 2.5 (2.0-3.5) %FS 41% LVPWd 1.4 (0.6-1.2) Ao Diam 3.0 (2.0-3.7) 2 DIMENSIONAL ASSESSMENT: RIGHT ATRIUM: NORMAL LEFT ATRIUM: DILATED RIGHT VENTRICLE: NORMAL LEFT VENTRICLE: LEFT VENTRICULAR HYPERTROPHY TRICUSPID VALVE: NORMAL MITRAL VALVE: MITRAL ANNULAR CALCIFICATION PULMONIC VALVE: NORMAL AORTIC VALVE: STENOSIS PERICARDIAL EFFUSION: NONE AORTIC ROOT: NORMAL LEFT VENTRICULAR WALL MOTION: NORMAL. DOPPLER/COLOR FLOW: MODERATE AORTIC STENOSIS, PEAK/MEAN GRADIENT 48/26mmHg. ESTIMATED AORTIC VALVE AREA 1.3 CENTIMETERS SQUARED. MILD MITRAL REGURGITATION. COMMENTS: NORMAL LEFT VENTRICULAR EJECTION FRACTION. LEFT VENTRICULAR HYPERTROPHY. MITRAL ANNULAR CALCIFICATION. MODERATE AORTIC STENOSIS. MILD MITRAL REGURGITATION. TECHNOLOGIST: SHANE WOO
--- NOTE | 2018-03-04 15:13 | PN ---
Date of Progress Note: 03/04/2018 Subjective: The patient is seen and examined. Chart reviewed and case discussed with RN and Dr. Valiente. The patient is a 67-year-old male. He was admitted yesterday for generalized weakness. He does not report any pain. States that his condition is still about the same, still feels very weak. The patient receiving blood this morning due to hemoglobin dropped to 6. Review of Systems: Negative except as above. Medications: List reviewed. Physical Examination: Vital Signs: Temperature 98.2, heart rate 81, blood pressure 171/78, respirations 16, O2 98% on room air. General: Awake, alert, oriented x3. Some mild distress. Elderly male, ill- appearing. CV: S1, S2. Systolic ejection murmur 3/6 radiating to the carotids. Peripheral pulses present. Respiratory: Diminished breath sounds at the bases. No wheezing or stridor. Gastrointestinal: Abdomen is soft, nontender, nondistended. Positive bowel sounds. Extremities: No clubbing, cyanosis. The patient does have lower extremity edema. Neuro: The patient does have some weakness in his left lower extremity, ongoing for the past couple of months. A 3/5 strength. Laboratory Data: Sodium 143, potassium 3.3, chloride 112, CO2 24, BUN 59, creatinine 5.9, glucose 117, calcium 7.8, phosphorus 4.3, magnesium 2.1. Iron 26, TIBC 175, transferrin 125, ferritin 436. AST 13, ALT 9, albumin 2.2, vitamin B12 of 325, folate 10, TSH 2.3, PTH 212. WBC 6.7, H and H 6.5 and 18.5 , platelets 157. Immunology screening pending. UA shows negative nitrite, negative leukocyte esterase, 5-10 RBC, 10-20 WBC, no bacteria. Echocardiogram shows ejection fraction of 73%, left ventricular hypertrophy, mitral annular calcification, moderate aortic stenosis, mild mitral regurgitation. Renal ultrasound shows bilateral echogenic kidneys compatible with underlying medical renal disease, benign bilateral renal cysts. Assessment And Plan: A 67-year-old male with: 1. Acute on chronic kidney injury, stage 4. The patient has been seen by Nephrology. We will continue with IV fluids and monitor. Creatinine has not improved significantly at all. Workup is underway. Renal ultrasound does show medical renal disease and some benign cysts. Pathology workup underway. Appreciate Dr. Valiente's input. 2. Elevated troponin level. No chest pain. Doubt any acute coronary syndrome. Appreciate Dr. Carrasquillo' input. Echocardiogram did not show any wall motion abnormality. 3. Acute anemia, microcytic hypochromic, likely anemia of chronic disease. Stool occult is pending. We will transfuse 1 unit PRBCs due to dropping hemoglobin. Discontinue Lovenox for deep venous thrombosis prophylaxis. Iron study does show iron deficiency. Folate and B12 were normal. 4. Hypokalemia. The patient also with hyperkalemia in the setting of acute kidney injury and alkalosis, rule out hypoaldosteronism. 5. Essential hypertension, well controlled. Medications have been adjusted. 6. Hyperlipidemia, mixed. 7. Diabetes mellitus type 2. Continue sliding scale insulin. The patient has neuropathy. Non-insulin requiring. 8. Hypertensive heart disease. 9. Gastrointestinal and deep venous thrombosis prophylaxis with PPI and SCDs. No chemical anticoagulation due to severe anemia. 10. Gastritis. We will add PPI. 11. Moderate aortic stenosis. 12. Left lower extremity weakness: ongoing for [address] abd showed incidental finding of L4-5 disc herniation. PT brissa MILLER/CHARLA Voice ID: [id number] Report ID: [id number] RUTH
[2018-03-04 15:22] LABS: Hematocrit 22.1 % (39.6-49.0)
[2018-03-04] MEDS: HYDROCODONE/APAP 5/325 MG TAB PO PRN (17:14)
[2018-03-04] MEDS: DOCUSATE NA 100 MG CAP PO SCH (21:35)
[2018-03-04] MEDS: CARVEDILOL 25 MG TAB PO SCH (21:35)
[2018-03-04] MEDS: GABAPENTIN 300 MG CAP PO SCH (21:35)
[2018-03-04] MEDS: NORTRIPTYLINE HCL 25 MG CAP PO SCH (21:36)
[2018-03-04 22:26] LABS: Hematocrit 20.5 % (39.6-49.0)
--- NOTE | 2018-03-05 01:02 | PN ---
Date of Progress Note: 03/04/2018 Chief Complaint: Abnormal renal function test, elevated BUN and creatinine, hypokalemia. History Of Present Illness: The patient was found to have elevated BUN and creatinine. He has chronic kidney stage 4. The patient has been followed at [facility]. Lab work on arrival to this hospital showed elevated BUN and creatinine. The patient was found to have elevated blood pressure and hypertensive urgency. The patient is evaluated by vault mechanic. Review of Systems: Denies fever or chills. Physical Examination: Lungs: Clear to auscultation bilaterally. Heart: S1, S2. Abdomen: Soft, benign. Extremities: No edema. Blood Work: Sodium 142, potassium 3.4, bicarbonate 26, BUN 58, creatinine 6, calcium 8.4. Assessment And Plan: 1. Acute kidney injury on advanced chronic kidney disease. The patient was taken off nonsteroidal anti-inflammatory medication. The patient was taking ASHLY inhibitor. ASHLY inhibitor currently is on hold because of acute kidney injury on chronic kidney disease. 2. Hypertension. Continue blood pressure medication. 3. Hypokalemia. Supplementation as needed. 4. Anemia. The patient is receiving blood transfusion. Hemoglobin level is improving from 6.5 to 7.5. MARSHA/CHARLA Voice ID: [id number] Report ID: [id number] RUTH
[2018-03-05] MEDS: INSULIN -REGULAR HUMAN 50 UNIT/0.5 ML ML SQ SCH ×4 (07:30→21:00)
[2018-03-05] MEDS ORDERED: LABETALOL HCL 100 MG/20 ML IV ONE (07:37)
[2018-03-05] MEDS: DOCUSATE NA 100 MG CAP PO SCH ×2 (08:19→21:27)
[2018-03-05] MEDS: ATORVASTATIN 20 MG TAB PO SCH (08:19)
[2018-03-05] MEDS: PANTOPRAZOLE 40MG TABLET PO SCH (08:19)
[2018-03-05] MEDS: NA CHLORIDE 0.9% 1,000 ML IV SCH (09:00)
[2018-03-05] MEDS: AMLODIPINE 10 MG TAB PO SCH (09:22)
[2018-03-05] MEDS: CARVEDILOL 25 MG TAB PO SCH ×2 (09:23→21:28)
[2018-03-05 09:24] LABS: Rheumatoid Factor NEG (NEG)
[2018-03-05 10:14] LABS: Absolute Lymphocytes (CBC) 1.6 K/uL (0.7-4.9); Absolute Monocytes 0.8 K/uL (0.1-1.3); Absolute Neutrophil 5.7 K/uL (1.8-8.0); Basophils % 0.7 % (0-1.3); Eosinophils % 4.2 % (0-4.4); Hematocrit 25.1 % (39.6-49.0); Lymphocytes % 18.9 % (15.3-44.8); MCH 27.6 pg (27.0-35.0); MCV 79.6 fL (80-100); Monocytes % 9.5 % (3.3-12.3); RBC Red Blood Cell Count 3.15 M/uL (4.33-5.43)
[2018-03-05 10:26] LABS: Albumin 2.3 g/dL (3.4-5.0); Bilirubin Total 0.5 mg/dL (0.2-1.0); Magnesium 2.3 mg/dL (1.8-2.4); Phosphorus 4.1 mg/dL (2.5-4.9); Potassium 3.2 mmol/L (3.5-5.1); Protein, Total 5.7 g/dL (6.4-8.2)
[2018-03-05 11:05] LABS: Hematocrit 23.9 % (39.6-49.0)
[2018-03-05] MEDS: HYDROCODONE/APAP 5/325 MG TAB PO PRN ×2 (11:58→21:32)
--- NOTE | 2018-03-05 12:42 | RAD REPORT ---
EXAM DESCRIPTION: RAD - Knee Left 2 View - 03/05/2018 12:12 pm CLINICAL HISTORY: Knee pain and swelling, no trauma history detailed COMPARISON: None. FINDINGS: No fracture, dislocation or periosteal reaction.Large joint effusion is present. No joint space narrowing. No soft tissue abnormality. IMPRESSION: Large joint effusion with no acute bone or joint finding. Clinical concerns for internal derangement or occult bony injury could be further assessed with MR im aging.
--- NOTE | 2018-03-05 15:34 | PN ---
Date of Progress Note: 03/05/2018 Subjective: The patient is seen and examined. Chart reviewed and case discussed with RN and Dr. Castillo. The patient complaining of worsening leg weakness on the left. The patient received second u nit of blood this morning. Review of Systems: Negative except as above. Medications: List reviewed. Physical Examination: Vital Signs: Temperature 97.4, heart rate 91, blood pressure 178/88, respirations 20, O2 98% on room air. General: Awake, alert, oriented x3, in some mild distress. Elderly male, ill-appearing. CV: S1, S2. No murmurs. Regular rate and rhythm. Peripheral pulses present. Respiratory: Diminished breath sounds at the bases. No wheezing or crackles. Gastrointestinal: Abdomen is soft, nontender, nondistended. Positive bowel sounds. No guarding or rigidity. Extremities: No clubbing, cyanosis. The patient does have edema of the left lower extremity, worse than right. Knee has some fluctuance and fluid present. No tenderness to palpation. Neuro: Cranial nerves 2 through 12 intact grossly. The patient has weakness on the left lower extre mity, 3/5. Laboratory Data: Sodium 143, potassium 3.2, chloride 113, CO2 22, BUN 56, creatinine 5.8, glucose 18 6, calcium 8, magnesium 2.3, phosphorus 4.1. PTH is 212. WBC 8.5, H and H 8.7 and 25.1, MCV 79.6. Immunology study pending. Hepatitis panel pending. Urine culture, no growth to date. Blood culture s, no growth to date. X-ray of the knee personally reviewed shows large joint effusion with no bone or joint finding. Assessment And Plan: A 67-year-old male with: 1.Acute on chronic kidney injury, stage 4. Continue IV fluids. Monitor creatinine. Not much impro vement. Workup underway to rule out different etiologies including light chain disease, hyperaldoste ronism. 2.Elevated troponin level. No chest pain. No intervention from Cardiology at this point. Katie Carrasquillo' input. Echo did not show any wall motion abnormality. 3.Acute anemia, microcytic hypochromic, likely anemia of chronic disease. Stool occult pending. Th e patient has been transfused 2 units of PRBCs total. 4.Hypokalemia in the setting of acute kidney injury and alkalosis, possible hypoaldosteronism. 5.Essential hypertension, uncontrolled. We will add IV pain medications p.r.n. 6.Hyperlipidemia, mixed. Statin. 7.Diabetes mellitus type 2. Continue sliding scale insulin. Vpa-[id number]-[id number] with neuropathy. 8.Hypertensive heart disease. 9.Moderate aortic stenosis. 10.Left lower extremity weakness. CT scan showed incidental finding of L4-L5 disk bulging. We will obtain MRI to rule out cord compression. The patient states his symptoms have been ongoing for the past 2 months. 11.Left knee effusion. We will elevate and supportive care. Doppler ultrasound to rule out deep ve nous thrombosis. Plan: The patient will likely need [facility] to [facility] versus [facility]. The patient m ay need to be initiated on dialysis. We will touch base with Nephrology, follow up on MRI of the lum bar spine. Neurology, Dr. Dubois has been consulted. SA/MODL Voice ID: [id number] Report ID: [id number]
--- NOTE | 2018-03-05 19:55 | PN ---
Date of Progress Note: 03/05/2018 Subjective: The patient was admitted with elevated BUN and creatinine, uncontrolled hypertension, found to be proteinuria with worsening kidney function. The patient found to have chronic kidney disease, stage 4. Physical Examination: Vital Signs: When I saw the patient, blood pressure 146/80, pulse of 88. Chest: Clear to auscultation. Heart: S1, S2. Regular. Abdomen: Soft, nontender. Extremities: No edema. Laboratory Data: WBC 4.8, H and H 8.6/23.5. Sodium 143, potassium 3.2, bicarb 22, BUN 56, creatinine 5. Assessment And Plan: 1. Acute kidney injury on advanced chronic kidney disease secondary to diabetic nephropathy with nephrotic range of proteinuria. I am going to keep holding ASHLY inhibitor and ARBs for the time being. It looked to me that the patient has normal volume. I am going to discontinue IV fluid and we will monitor. The patient does not have any uremic symptoms, no hyper K . The patient will need dialysis, but I do not think he is going to need urgent dialysis for the time being. We will follow up. 2. Hypokalemia. We will supplement. We will follow up renin plasma activity and aldosterone, and we will consider adding Aldactone. 3. Hypertension, possible hyperaldo hypokalemia. We will follow up plasma aldosterone level and we will consider adding Aldactone. 4. Anemia of chronic kidney disease. Continue current treatment. Status post transfusion. 5. Lower extremity weakness, unilateral. We will follow up with Neurology and plan for MRI. PENELOPE Voice ID: [id number] Report ID: [id number] RUTH
[2018-03-05] MEDS: NORTRIPTYLINE HCL 25 MG CAP PO SCH (21:28)
[2018-03-05] MEDS: GABAPENTIN 300 MG CAP PO SCH (21:28)
--- NOTE | 2018-03-06 00:16 | CON ---
Reason For Consultation: Left leg weakness. History Of Present Illness: Mr. Schulz is a 67-year-old patient with hypertension, dyslipidemia, c hronic renal disease, and diabetic neuropathy, who said he was doing okay up to about 2-3 months ago when he began having left lower extremity weakness. He said weakness was more proximal so difficulty lifting the knee and extending his leg. He had more strength, moving his left foot that is up and d own. He was forced to use first a cane and a walker but has had significant worsening difficulty wit h ambulation and is now admitted to the hospital for evaluation. He had an abdominal CT scan on admi ssion on the . This is the 05 of March. The study showed prominent degenerative changes presen t at L4-5, actually described as advanced with a large disk bulge also, suspected at L5-S1. He is sc heduled to have an MRI of the lumbar spine but MRI machine is currently down. Past Medical History: As indicated. Past Surgical History: None. Allergies: NO KNOWN DRUG ALLERGIES. Family History: Noncontributory. Social History: Smoked up to 2 years ago. Denies alcohol or IV drug use. Current Medications: Tylenol Extra Strength as needed, Norvasc 10 mg daily, Lipitor 20 mg daily, Cor eg 25 mg twice daily, Colace 100 mg twice daily, gabapentin 300 mg at bedtime, he has insulin sliding scale, Pamelor 25 mg at bedtime, Zofran 4 mg IV as needed, Protonix 40 mg daily. Review of Systems: As indicated progressive weakness in the left lower extremity. Denies any bowel or bladder loss. De nies any weakness in the upper extremities. Denies weakness in his face. Denies loss of sensation. He says that the sensation is intact in the left lower extremity. Denies recent nausea, vomiting, m yalgias, or arthralgias. No psychiatric complaints or other positives on a 10-point systems review o ther than indicated. Physical Examination: Vital Signs: Blood pressure 130/71, pulse 77, respiratory rate 18, temperature 97.8, oxygen saturati on 98% room air, weight 250 pounds. Height 6 feet 2 inches. BMI 27. General: Mr. Schulz is resting in bed. He is in no acute distress. HEENT: He is normocephalic, atraumatic. Sclerae are anicteric. Oropharynx is pink and moist. Neck: Supple. Chest: Clear. Heart: Regular. Extremities: Show no edema or cyanosis except in the left lower extremity, there is mild trace edema distally. Neurologic: Cranial nerves show no focal deficits on 2 through 12. Motor in the upper extremities 5 /5 proximally and distally; in the right lower extremity 5/5 proximally and distally; and left lower extremity, he has hip elevation. He is unable to lift off the bed, around 2/5 at hip flexion, knee e xtension 3/5, and knee flexion 3/5. Foot dorsi and plantar flexion 4/5. Sensation; stocking-glove l oss to light touch temperature in the legs and arms. Reflexes; unable to elicit at the patellae and heels and upper extremities. Coordination of the upper extremities and the right lower extremity is intact. Unable to ambulate without assistive device due to left lower extremity weakness. Laboratory Studies: White blood cell count 8.5, hemoglobin 8.6, hematocrit 23.9. The patient did matias ve a low hemoglobin of 6.5 and a second and did receive 1 unit of packed red blood cells, platelets 1 74. INR 1.08. Chemistries, he has renal failure with a creatinine of 5.8, glucose range from 122 to 203, potassium is low at 3.2, AST 14, ALT 10. Rheumatoid factor negative. JUNIE pending. Anti-prote inase 3 pending. Anti-myeloperoxidase pending. Double-stranded DNA antibody pending. Complement 3 and 4 are pending. Hepatitis panel is pending. Chest x-ray shows no acute cardiopulmonary abnormali ties. Electrocardiogram shows normal sinus rhythm with left ventricular hypertrophy and repolarizati on abnormality, prolonged QT. Extremity venous Doppler study shows no evidence of deep vein thrombos is in either leg. There is a 4 cm Mccarty cyst in the left posterior knee region. Renal ultrasound sh ows bilateral echogenic kidneys noted compatible with underlying medical renal disease. There are be nign bilateral renal cysts. Echocardiogram shows ejection fraction of 73% with mitral annular calcif ication, moderate aortic sclerosis, mild mitral regurgitation. Left knee x-ray shows large joint eff usion, no acute bone or joint findings. Assessment: Mr. Schulz is a 67-year-old patient with significant knee pathology, perhaps contribut ing to some pain in the knee, but he does have significant weakness proximally for hip flexion and kn ee extension pointing to level 3 and L4 on the left. The CT scan of the abdomen does identify signif icant degenerative disk disease in the lower lumbar region and the 1st sacral region, however, not we ll visualized given the limitation of CT scan. He does have an MRI of the lumbar region pending. Hi s findings are consistent with a possible significant compression of the lumbar roots, again left L3 and L4. Plan: 1.Proceed with MRI of lumbar spine. 2.Depending on findings, the patient may require surgical intervention. 3.He may benefit from physical therapy in the interim if the MRI cannot be complete. Plan aggressiv e management of blood sugars, hypertension, and dyslipidemia. 4.The patient should be placed on aspirin 81 mg daily. 5.His renal failure is managed by the Renal Service, and potassium, hypokalemia should be addressed as well. NOREEN/CHARLA Voice ID: [id number] Report ID: [id number]
[2018-03-06] MEDS: HYDROCODONE/APAP 5/325 MG TAB PO PRN ×3 (02:50→22:12)
[2018-03-06 06:10] LABS: Absolute Lymphocytes (CBC) 1.6 K/uL (0.7-4.9); Absolute Monocytes 0.8 K/uL (0.1-1.3); Absolute Neutrophil 5.7 K/uL (1.8-8.0); Basophils % 0.7 % (0-1.3); Eosinophils % 3.9 % (0-4.4); Hematocrit 22.7 % (39.6-49.0); Lymphocytes % 19.3 % (15.3-44.8); MCH 28.2 pg (27.0-35.0); MCV 79.4 fL (80-100); MPV 7.8 fL (7.6-11.3); RBC Red Blood Cell Count 2.86 M/uL (4.33-5.43)
[2018-03-06 06:37] LABS: Albumin 2.2 g/dL (3.4-5.0); Bilirubin Total 0.2 mg/dL (0.2-1.0); Magnesium 2.2 mg/dL (1.8-2.4); Phosphorus 4.7 mg/dL (2.5-4.9); Potassium 3.5 mmol/L (3.5-5.1); Protein, Total 5.4 g/dL (6.4-8.2)
[2018-03-06] MEDS: INSULIN -REGULAR HUMAN 50 UNIT/0.5 ML ML SQ SCH ×4 (07:30→21:00)
[2018-03-06] MEDS: PANTOPRAZOLE 40MG TABLET PO SCH (07:54)
[2018-03-06] MEDS: CARVEDILOL 25 MG TAB PO SCH ×2 (08:23→22:11)
[2018-03-06] MEDS: AMLODIPINE 10 MG TAB PO SCH (08:24)
[2018-03-06] MEDS: ATORVASTATIN 20 MG TAB PO SCH (08:24)
[2018-03-06] MEDS: DOCUSATE NA 100 MG CAP PO SCH ×2 (08:24→22:11)
[2018-03-06 12:22] LABS: HBsAG Nonreactive (Nonreactive)
--- NOTE | 2018-03-06 14:26 | RAD REPORT ---
EXAM DESCRIPTION: CT - Spine Lumbar Wo Con - 03/06/2018 2:06 pm CLINICAL HISTORY: Radiculopathy. Left lower extremity weakness COMPARISON: Stone Protocol dated 03/03/2018; Chest Single View dated 03/03/2018 TECHNIQUE: Axial noncontrast CT imaging of the lumbar spine was performed with coronal and sagittal re-formatted images. All CT scans are performed using dose optimization technique as appropriate and may include automated exposure control or mA/KV adjustment according to patient size. FINDINGS: No acute lumbar spine fracture seen. A prominent degenerative disc disease pattern is seen at L4-5 with endplate sclerosis. Spinal canal stenosis is likely present at this level, although dif ficult to fully assess by CT. No evidence of a paraspinal mass or hematoma. Several renal cysts are noted bilaterally. IMPRESSION: Prominent degenerative change at L4-5 is seen with probable significant canal stenosis a t this level. Further assessment with the follow-up MR imaging is suggested.
[2018-03-06 14:40] LABS: Hepatitis C Virus RNA (PCR)log <1.18 log IU/mL
--- NOTE | 2018-03-06 17:32 | PN ---
Subjective: Currently, patient lying in bed. He looks comfortable. He had no chest pain. No abdom inal pain. No fever, no chills overnight. He continues to have left leg weakness. MRI was aborted yesterday due to the broken machine. Review of Systems: Otherwise as below. Physical Examination: Vital Signs: Blood pressure 116/57, respiratory rate 18, pulse 75, temperature 98.6. General: The patient is alert and oriented x3. Does not look in distress. HEENT: Atraumatic, normocephalic. PERRLA. Oral mucosa is moist. Neck: Supple. No JVD. No carotid bruits. Chest: Clear to auscultation. Good air entry. Heart: Regular rate, normal S1, S2 normal. No gallop or murmur. Abdomen: Soft, nontender. No masses. No hepatosplenomegaly. Positive bowel sound. Extremities: No clubbing, no cyanosis, no edema. No calf tenderness. Neurologic: Grossly intact. Left lower extremity weakness 3/5. Laboratory Data: Today showed CBC with hemoglobin of 8.1, platelets 168, normal white blood cells. Chemistry with creatinine of 6, BUN 56, chloride 112, calcium 7.7, glucose 96. CT-spine lumbar without contrast showed prominent degenerative change to L4-L5 with probable signific ant canal stenosis at that level. Assessment And Plan: 1.Acute on chronic renal insufficiency, stage 4. The patient is on IV fluid. Creatinine is still v danyell high. The patient soon is going to have started on hemodialysis per Nephrology. 2.Elevated troponin, most likely secondary to renal insufficiency. No active chest pain. Echo did not show any wall motion abnormalities. Dr. Carrasquillo evaluated the patient. 3.Anemia, microcytic, most likely anemia of renal insufficiency. The patient was transfused 2 units of blood. Hemoglobin around 8. Stool occult is not done. I will reorder that again. 4.Hypertension, better controlled today. 5.Hyperlipidemia, on statin. 6.Diabetes mellitus. The patient is on insulin sliding scale. Continue. I will check his hemoglob in A1c. 7.Left lower extremity weakness. CT showed canal stenosis, but no nerve compression. MRI recommend ed for further evaluation. The patient probably needs to see an orthopedic. Will consult Ortho for any further recommendation. 8.Left knee effusion. Doppler did not show DVT. Continue supportive care. 9.Elevated BNP, most likely secondary to iron deficiency. 10.Folate B12 were normal. 11.Hypokalemia. Rule out hypoaldosteronism. Aldosterone is still pending, renin activity as well. Workup for renal insufficiency still pending. MT/MODL Voice ID: [id number] Report ID: [id number]
[2018-03-06] MEDS ORDERED: LIDOCAINE 1% 20 ML MDV IJ ONE (18:22)
[2018-03-06] MEDS ORDERED: LIDOCAINE 1% MPF 5 ML VIAL ONE (18:35)
[2018-03-06 19:09] LABS: Body Fluid WBC 198 /mm^3
[2018-03-06 19:59] LABS: HIV 1/2 Antibody Diff Not indicated.; HIV AG/AB 4TH GEN Non-reactive (Non-reactive)
[2018-03-06 20:06] LABS: Body Fluid Source SYNOVIAL; Color of fluid Yellow (COLORLESS)
[2018-03-06 20:07] LABS: Appearance SLT. TURBID (CLEAR)
--- NOTE | 2018-03-06 21:27 | CON ---
Date of Consultation: 03/06/2018 The patient is consulted on 03/06/2018, requested by Dr. Velásquez. Consultation is concerning weakness left lower extremity and chronic effusion, left knee. History Of Present Illness: This patient is a 67-year-old male who was admitted on 03/03/2018 with a cute on chronic renal failure, hypokalemia, elevated troponin level, essential hypertension uncontrol led, hyperlipidemia, diabetes mellitus type 2, and gastrointestinal and deep venous thrombosis prophy laxis with PPI and Lovenox, renally dosed. During this hospitalization, the patient has had complain ts of weakness in his left lower extremity. He indicates that he was doing well 3 months ago when he started having difficulty lifting his left thigh while standing or reclining. Subsequently, he has become quite weak at extending the knee as well. He was using a walker with primary weightbearing on the right lower extremity, but indicates that 2 weeks ago he was forced to go to transfer into a whe elchair as he could no longer use his cane or walker. The patient has had for that 3-month period a chronic effusion in the left knee. He states he was evaluated at [facility], but nothing was do ne about his knee. He denies having an injection or aspiration for the knee in the past. Dr. Steven Dubois consulted for Neurology and after noting the knee pathology indicated the weakness in the p roximal hip flexors and knee extensors were indicating difficulty at L3 and L4, possibly significant compression of lumbar roots 3 and [address] scan of the lumbar spine done 03/03/2018 showed prominent degenerative change at the L4-5 level with significant canal stenosis. The venous Doppler exam of both lower extremities showed no DVT in either lower extremity, but indicated there was a 1 x 4 cm Mccarty cyst behind the left knee. Past Medical History: The patient is treated for hypertension, hyperlipidemia, diabetes, chronic kid mercedes disease, neuropathy, and hypertension. Past Surgical History: None. Allergies: NO KNOWN DRUG ALLERGIES. Social History: The patient has a history of tobacco use, but quit approximately 2 years ago. He de nies alcohol or drug use. Review of Systems: A 10 point system review is negative except as per HPI. Physical Examination: Vital Signs: Blood pressure 165/87, respirations 22, pulse 96, temperature 98.4. HEENT: Within normal limits. Neck: Supple. Chest: Clear to auscultation. Heart: Regular rate and rhythm. Abdomen: Soft and nontender. Genital and Rectal: Exams are deferred. Extremities: On examination, the patient cannot lift the left lower extremity from the mattress with hip flexors and cannot extend the knee against gravity. He indicates he is attempting to do so and no contraction is felt in the quadriceps and to anterior thigh area. The patient indicates he has se nsation to light touch in both lower extremities. Deep tendon reflexes are 0 and symmetrical at the knees, 0 and symmetrical at the ankles. Diagnostic Data: X-ray of the left knee showed a large joint effusion with no acute bone or joint fi ndings. Venous Doppler as mentioned showed a Mccarty cyst 1 x 4 cm and no DVT in either lower extremit y. The knee has a 4+ effusion. The patient is agreeable to aspiration, to investigate and remove fluid volume. After discussion of risks and benefits, the patient elected to proceed. The lateral aspect of the left knee was prepped with Betadine swabs x2, that was allowed to dry and then chlorhexidine swab was used and alcohol swab s were used as well. At that time, the 18-gauge needle was introduced in the lateral parapatellar li ne with injection of 5 mL of 1% lidocaine into the skin and subcutaneous tissue and capsule, passing through the capsule into the knee, 85 mL of natarajan relatively clear joint fluid was removed. The asp irate was sent for cell count and differential, crystal analysis, Gram stain and cultures, both aerob ic and anaerobic. The needle was withdrawn and a Band-Aid was applied. The procedure was well юлия ated as the patient slept while the needle was in position for aspiration. The patient is scheduled for an MRI of the lumbar spine on Thursday. I think he is also scheduled for dialysis. I would recommend MRI scan of the left knee while he is in the [facility], if possible. NORIS/CHARLA Voice ID: [id number] Report ID: [id number]
--- NOTE | 2018-03-06 21:33 | PN ---
Date of Progress Note: 03/06/2018 Subjective: The patient still having some weakness in the lower extremity. Objective: Vital Signs: Blood pressure 140/60 Afebrile. Chest: Clear to auscultation. Heart: S1, S2. Regular. Abdomen: Soft, nontender. Extremities: Trace edema. Laboratory Data: H and H 8.7. Sodium 142, potassium 3.5, bicarb 20, Cr 4.7, magnesium 2.2. Medications: Current medications the patient on is include, Norvasc 10, carvedilol 25, hydralazine p.r.n. gabapentin 300 daily, Pamelor, lidocaine patch , pantoprazole, insulin. Assessment And Plan: 1. Chronic kidney disease, stage 5, progression to end-stage renal disease. We will arrange for the dialysis Thursday. 2. Hypertension, controlled optimal. Continue current medication. 3. Secondary SHPT no need for [id number] for now 4. ChronicIDA will continue IV iron BRETT/CHARLA Voice ID: [id number] Report ID: [id number] [facility]ITALDeysi
[2018-03-06] MEDS: GABAPENTIN 300 MG CAP PO SCH (22:12)
[2018-03-06] MEDS: NORTRIPTYLINE HCL 25 MG CAP PO SCH (22:12)
[2018-03-07 05:34] LABS: Albumin 2.2 g/dL (3.4-5.0); C-Reactive Protein 19.5 mg/L (<3.00); Magnesium 2.1 mg/dL (1.8-2.4); Phosphorus 5.1 mg/dL (2.5-4.9); Potassium 3.7 mmol/L (3.5-5.1); Uric Acid 7.3 mg/dL (3.5-7.2)
[2018-03-07] MEDS: HYDROCODONE/APAP 5/325 MG TAB PO PRN (06:25)
[2018-03-07] MEDS: INSULIN -REGULAR HUMAN 50 UNIT/0.5 ML ML SQ SCH ×4 (07:30→21:00)
[2018-03-07] MEDS: AMLODIPINE 10 MG TAB PO SCH (08:01)
[2018-03-07] MEDS: DOCUSATE NA 100 MG CAP PO SCH ×2 (08:01→21:07)
[2018-03-07] MEDS: CARVEDILOL 25 MG TAB PO SCH ×2 (08:01→21:07)
[2018-03-07] MEDS: PANTOPRAZOLE 40MG TABLET PO SCH (08:01)
[2018-03-07] MEDS: ATORVASTATIN 20 MG TAB PO SCH (08:03)
--- NOTE | 2018-03-07 10:34 | CON ---
Date of Consultation: 03/06/2018 Reason Of Evaluation: The patient needs a dialysis catheter. History Of Present Illness: The patient is a 67-year-old gentleman with multiple medical problems, w ho was admitted with generalized malaise, weakness, dizziness, shortness of breath. His workup revea led acute renal failure. He was seen by the Nephrology Service and requires dialysis. He is awake, alert. No fever or chills. Review of Systems: Otherwise unremarkable. Past Medical History: Hypertension, hyperlipidemia, diabetes, chronic kidney disease, neuropathy, an d hypertension. Past Surgical History: Negative. Allergies: NO ALLERGIES. Social History: He used to smoke, quit 2 years ago. He does not drink. Family History: Significant for DVT in the mother. Physical Examination: Vital Signs: Stable. He is afebrile. General: He is awake, alert, and oriented x3. Head and Neck: Cranial nerves 2 through 12 are grossly within normal limits. No neck masses. No JV D. Throat clear. Neck is supple. Chest: Clear. Heart: S1, S2. Abdomen: Soft. Extremities: Neurovascularly intact. Neuro: Nonfocal. Laboratory Data: His white count is 8.4, H and H are 8.1 and 23.7, platelets are 168. His INR is 1. 08 and BUN is 58, creatinine 6.2. Assessment: A 67-year-old gentleman with acute renal failure. Plan: We will place Tesio catheter in the morning. The patient understands the risks, benefits, and alternatives and agrees to procedure. VALENTINE/CHARLA Voice ID: [id number] Report ID: [id number]
--- NOTE | 2018-03-07 12:09 | P.PN ---
Date of Service: 03/07/18 S: PATIENT SITTING ON SIDE OF BED WITH P.T. ENCOURAGING STAND TO FWW. O: ALERT ORIENTED COOPERATIVE.AFEBRILE, VSS, SEDIMENTATION RATE 67 H; URIC ACID 7.3 h, (nl 3.5-7.2); C-REACTIVE PROTEIN 19.5, (nl <3.0); ASPIRATE LEFT KNEE YELLOW, FLUID WBCs 198, NEUT 17%, LYMPH 83%, RBCs 1535, GRAM STAIN & CULTURES PENDING. PATIENT WAS ABLE TO STAND TO FWW, ALTERNATING LIFTING FEET LEFT LEG BUCKLED WITH SHIFT OF WT TO HANDS AND RIGHT FOOT. STILL WORKING WITH P.T. I DEPARTED. A: CHRONIC 2-3 MONTH HISTORY OF DECLINING CAPABILITIES. ASPIRATE ESSENTIALLY NEGATIVE, BUT AWAITING PENDING RESULTS. CONCERN THAT CHRONIC INFECTION MAY BE PART OF L4-5 DISC DISEASE. P: DISCUSSED WITH DR. BENJAMIN. MRI AVAILABLE TOMORROW. MAY NEED NEUROSURGERY CONSULT.
--- NOTE | 2018-03-07 13:52 | PN ---
Date of Progress Note: 03/07/2018 Subjective: The patient is still feeling weak with weakness in the leg. Physical Examination: Vital Signs: Blood pressure 146/80, pulse of 77, afebrile. Chest: Clear to auscultation. Heart: S1, S2. Systolic murmur. Abdomen: Soft, nontender. Extremities: No edema. Laboratory Data: WBC 8.4, H and H 8.1/22.7, platelet 168. Sodium 141, potassium 3.7, bicarb 22, BUN 58, creatinine 6.2, GFR of 11. Uric acid 7.3, calcium 7.7, phosphor 5.1. SPEP is still pending. P TH of 212. TSH within normal limit. Aldosterone of 2. Plasma renin activity still pending. Serolog y was negative for rheumatoid factor, complement within normal limit. Hepatitis was negative. HIV w as negative. Medications: Current medications the patient is on include: Cefazolin, amlodipine 10 mg, atorvastati n, carvedilol 25 b.i.d., hydralazine p.r.n., gabapentin 300 daily, Tylenol, nortriptyline 25, Zofran, pantoprazole. Assessment And Plan: 1.Chronic kidney disease, stage 5, progressing to end-stage renal disease. I am going to continue t he patient on monitor. We will plan for Permacath placement tomorrow and start dialysis. 2.Hypertension, controlled, optimal. Continue current medication. 3.Hypokalemia. We will dialyze the patient on high potassium bath. 4.Spinal stenosis. Continue supportive treatment. We will follow up with Surgery. PENELOPE Voice ID: [id number] Report ID: [id number]
--- NOTE | 2018-03-07 16:43 | PN ---
Subjective: Currently, the patient lying in bed. He just had his lunch. He is doing well. No naus ea. No vomiting. No abdominal pain. He had a bowel movement finally after 3 days of no bowel movem ent. He continued to have left lower extremity weakness and back pain. He is probably going to be s tarted on dialysis soon. Objective: Vital Signs: Today, blood pressure is 146/80, respiratory rate 18, pulse 77, temperature 97.8. General: The patient is alert and oriented x3. Does not look in any distress. HEENT: Atraumatic, normocephalic. PERRLA. Oral mucosa is moist. Neck: Supple. No JVD. No carotid bruits. Chest: Clear to auscultation. Good air entry. Heart: Regular rate and rhythm. S1, S2 normal. No gallop or murmur. Abdomen: Soft, nontender. No masses. No hepatosplenomegaly. Positive bowel sounds. Extremities: No clubbing, cyanosis, or edema. Neurologic: Similar to yesterday. The patient continued to have left lower extremity weakness 3/5, otherwise normal exam. Laboratory Data: Labs today showed CBC with hemoglobin of 8.1, white blood cells 8.4, platelets norm al at 168. Chemistry within normal, except for BUN of 58, creatinine of 6.2, glucose 117, uric acid 7.3, calcium 7.7. Knee aspiration done yesterday by Dr. Branham showed yellowish fluid, white blood c ells noted, neutrophils as well. Hepatitis profile was negative. HIT was negative. Immunology prof ile pending, except C3-C4 normal and rheumatoid factor negative. Assessment And Plan: 1.Acute on chronic renal insufficiency, stage 4. At this point, the patient is going to start hemod ialysis. Dr. Rainey consulted for catheter placement and hopefully after that, the patient will be st arted on hemodialysis per Nephrology. Appreciate Nephrology and Surgery help. 2.Borderline elevated troponin, most likely secondary to renal insufficiency. Echo did not show any wall motion abnormalities. Observe for now. 3.Left lower extremity weakness. CAT scan showed spinal canal stenosis. Appreciate Dr. Branham's in put and Neurology input as well. We will need to proceed with MRI of the back in a.m. to evaluate fo r diskitis per Dr. Branham. 4.Left knee effusion with Mccarty cyst noted, status post aspiration yesterday fluid inconclusive so f ar. No evidence of infection. Culture pending negative. 5.Hypertension, needs better control. The patient is on p.r.n. hydralazine, Coreg. We will add Nor vasc. I will add Imdur 60 today. 6.Hyperlipidemia. The patient is on statin. 7.Diabetes mellitus. Hemoglobin A1c was 5.5. The patient on insulin sliding scale. Most likely, t he patient had prediabetes. 8.Anemia, most likely anemia of chronic disease. No evidence of iron deficiency with ferritin at 43 6. 9.Hypokalemia. Aldosterone is pending as well as renin activity. We will follow up on that in a.m. 10.Discharge plan will depend on findings by a adoption social worker after the patient's dialysis started as well as MRI results and if the patient needs to be transferred to [place] to get neurosurgical eval after MRI done in the morning. RICARDO/CHARLA Voice ID: [id number] Report ID: [id number]
[2018-03-07 17:12] LABS: P-ANCA Anti-Myeloperoxidase Ab <1.0 AI (<1.0)
[2018-03-07] MEDS: GABAPENTIN 300 MG CAP PO SCH (21:07)
[2018-03-07] MEDS: NORTRIPTYLINE HCL 25 MG CAP PO SCH (21:08)
[2018-03-08 06:07] LABS: Albumin 2.2 g/dL (3.4-5.0); Magnesium 2.1 mg/dL (1.8-2.4); Phosphorus 4.8 mg/dL (2.5-4.9); Potassium 3.6 mmol/L (3.5-5.1)
[2018-03-08] MEDS ORDERED: CEFAZOLIN/SWI 1gm 1 GM/10 ML SYR IV SCH (07:00)
[2018-03-08] MEDS: INSULIN -REGULAR HUMAN 50 UNIT/0.5 ML ML SQ SCH ×4 (07:30→20:29)
[2018-03-08] MEDS: AMLODIPINE 10 MG TAB PO SCH (09:05)
[2018-03-08] MEDS: ISOSORBIDE MONO SR 60 MG TAB PO SCH (09:05)
[2018-03-08] MEDS: DOCUSATE NA 100 MG CAP PO SCH ×2 (09:05→20:28)
[2018-03-08] MEDS: ATORVASTATIN 20 MG TAB PO SCH (09:05)
[2018-03-08] MEDS: CARVEDILOL 25 MG TAB PO SCH ×2 (09:06→20:28)
[2018-03-08] MEDS: HYDROCODONE/APAP 5/325 MG TAB PO PRN (09:06)
[2018-03-08] MEDS: PANTOPRAZOLE 40MG TABLET PO SCH (09:06)
[2018-03-08] MEDS ORDERED: LIDOCAINE 1% MPF 5 ML VIAL ONE (09:52)
[2018-03-08] MEDS ORDERED: NS 0.9% VIAL 10 ML ONE (09:52)
[2018-03-08] MEDS ORDERED: NA CHLORIDE 0.9% 100 ML IV ONE (09:53)
[2018-03-08] MEDS ORDERED: HEPARIN 5000 UNIT/ML 1 ML VIAL ONE (09:53)
[2018-03-08] MEDS ORDERED: PROPOFOL 200 MG/20 ML VIAL IV ONE (10:13)
[2018-03-08] MEDS ORDERED: LIDOCAINE 2% MPF 5 ML VIAL ONE (10:13)
[2018-03-08] MEDS ORDERED: MIDAZOLAM HCL 2 MG/2 ML INJ ONE (10:17)
[2018-03-08] MEDS ORDERED: NA CHLORIDE 0.9% 500 ML ONE (10:20)
[2018-03-08] MEDS ORDERED: CEFAZOLIN/SWI 1gm 1 GM/10 ML SYR ONE (10:36)
--- NOTE | 2018-03-08 11:05 | P.OP ---
Preoperative diagnosis: ARF Postoperative diagnosis: same Primary procedure: RIJ Tesio Placement Secondary procedure: Fluoroscopy Anesthesia: MAC Estimated blood loss: min Specimen: none Findings: Normal Anatomy Complications: None Transferred to: Recovery Room Condition: Good
--- NOTE | 2018-03-08 11:28 | RAD REPORT ---
EXAM DESCRIPTION: RAD - Fluoroscopy <1 Hour - 03/08/2018 11:13 am CLINICAL HISTORY: Venous catheter insertion. TESSIO PLACEMENT IN OR2 COMPARISON: No comparisons FINDINGS: Fluoroscopic imaging is submitted from placement of a venous catheter. Details of the pro cedure not available. Fluoroscopy time: 0 minutes.
--- NOTE | 2018-03-08 11:44 | RAD REPORT ---
EXAM DESCRIPTION: RAD - Chest Single View - 03/08/2018 11:34 am CLINICAL HISTORY: S/P Tesio Chest pain. COMPARISON: Chest Single View dated 03/03/2018 FINDINGS: Portable technique limits examination quality. Hazy opacities in both lung bases are present with underinflated lungs. Right-sided venous catheter h as been placed with its tip in the SVC. No pneumothorax is present. The heart is mildly prominent siz e. No displaced fractures. IMPRESSION: No postprocedure pneumothorax is seen.
--- NOTE | 2018-03-08 13:49 | P.PN ---
Subjective Date of Service: 03/08/18 Primary Care Provider: [facility]; Nephrology-Dr. Valiente Subjective: Doing well Physical Examination - Vital Signs Temperature: 97.2 F Blood Pressure: 110/68 Pulse: 69 Respirations: 16 Pulse Ox (%): 92 - Physical Exam General: Alert, In no apparent distress, Oriented x3, Cooperative HEENT: Atraumatic Neck: Supple Respiratory: Clear to auscultation bilaterally, Normal air movement Cardiovascular: Normal pulses, Regular rate/rhythm Gastrointestinal: Normal bowel sounds, Soft and benign, Non-distended, No tenderness, No masses, No rebound, No guarding Musculoskeletal: No erythema, No tenderness, No warmth Integumentary: No erythema, No warmth, No cyanosis Neurological: Normal speech, Normal strength at 5/5 x4 extr, Normal tone, Normal affect - Studies Microbiology Data (last 24 hrs): 03/03/18 12:22 Blood - Blood Aerobic Blood Culture - Final No growth in 5 days. 03/03/18 12:22 Blood - Blood Anaerobic Blood Culture - Final Medications List Reviewed: Yes Assessment & Plan - Problems (Diagnosis) (1) Anemia Current Visit: Yes Status: Acute Plan: Anemia likely of chronic disease. Will continue to monitor closely. Qualifiers: Anemia type: due to chronic kidney disease Chronic kidney disease stage: on chronic dialysis Qualified Code(s): N18.6 - End stage renal disease; D63.1 - Anemia in chronic kidney disease; Z99.2 - Dependence on renal dialysis (2) End stage renal disease Current Visit: Yes Status: Acute Plan: Patient will have dialysis catheter placed. Patient will be started on dialysis. Will discuss with nephrology. This will be continued as an outpatient. (3) SHRADDHA (acute kidney injury) Current Visit: Yes Status: Acute Plan: Patient with acute renal injury. Patient now required is chronic dialysis. This is to start today after placement of dialysis catheter. (4) Hypertension Onset Date: 03/04/18 Current Visit: Yes Status: Chronic Plan: Continue with medication. Qualifiers: Hypertension type: essential hypertension Qualified Code(s): I10 - Essential (primary) hypertension (5) Spinal stenosis Current Visit: Yes Status: Chronic Plan: Patient has spinal stenosis. This can be further monitored as an outpatient. Qualifiers: Spinal region: lumbar Neurogenic claudication status: unspecified Qualified Code(s): M48.061 - Spinal stenosis, lumbar region without neurogenic claudication Discharge Plan: Home Plan to discharge in: Greater than 2 days Time Spent Managing Pts Care (In Minutes): 55
[2018-03-08] MEDS ORDERED: NA CHLORIDE 0.9% 1,000 ML IV PRN (14:08)
[2018-03-08] MEDS ORDERED: MANNITOL 25% 12.5 GM/50 ML VIAL IV PRN (14:08)
[2018-03-08] MEDS: EPOETIN ALFA 10,000 UNIT/ML VIAL IV SCH (14:37)
[2018-03-08] MEDS ORDERED: ALBUMIN HUMAN 25% 50 ML IV SCH (15:00)
[2018-03-08 15:46] LABS: Albumin, (SPE) 2.6 g/dL (3.8-4.8); Alpha-1-Globulins 0.4 g/dL (0.2-0.3); Alpha-2-Globulins 0.6 g/dL (0.5-0.9); Gamma Globulins 0.8 g/dL (0.8-1.7); INTERPRETATION REPORT
[2018-03-08] MEDS: GABAPENTIN 300 MG CAP PO SCH (20:28)
[2018-03-08] MEDS: NORTRIPTYLINE HCL 25 MG CAP PO SCH (20:29)
--- NOTE | 2018-03-08 20:40 | P.PN ---
Date of Service: 03/08/18 S: PATIENT HAD HEMODIALYSIS CATHETER INSERTED, DIALYSIS TODAY. MRI WAS NOT DONE FOR L-SPINE. O: ALERT ORIENTED COOPERATIVE. AFEBRILE, VSS, SEDIMENTATION RATE 67 H; URIC ACID 7.3 h, (nl 3.5-7.2); C-REACTIVE PROTEIN 19.5, (nl <3.0); ASPIRATE LEFT KNEE YELLOW, FLUID WBCs 198, NEUT 17%, LYMPH 83%, RBCs 1535. CRYSTAL + FOR FEW EXTRACELLULAR CALCIUM PYROPHOSPHATE DIHYDRATE SEEN. GRAM STAIN: NO WBCs SEEN/ NO ORGANISMS SEEN. CULTURES PRELIMINARY NO GROWTH. PATIENT DID NOT WORK WITH PT TODAY. STILL WORKING WITH P.T. I DEPARTED. A: CHRONIC 2-3 MONTH HISTORY OF DECLINING CAPABILITIES. ASPIRATE ESSENTIALLY NEGATIVE, EXCEPT FOR FEW CPPD CRYSTALS. STILL HAVE CONCERN THAT CHRONIC INFECTION MAY BE PART OF L4-5 DISC DISEASE WITH MARKED ELEVATION OF SEDIMENTATION RATE AND C-REACTIVE PROTEIN. P: MRI MAYBE AVAILABLE TOMORROW.
--- NOTE | 2018-03-08 22:38 | OP ---
Date of Procedure: 03/08/2018 Surgeon: Sj Rainey MD Preoperative Diagnosis: Acute renal failure. Postoperative Diagnosis: Acute renal failure. Procedure: Placement of right internal jugular Tesio catheter and interpretation of intraoperative f luoroscopy. Estimated Blood Loss: Minimal. Specimen: None. Findings: Normal anatomy. Anesthesia: MAC. Complications: None. Disposition: The patient tolerated the procedure in stable condition and taken to recovery in good g eneral condition. Operative Note: The patient was brought to the OR, placed in supine position. General anesthesia wa s began. The patient was prepped and draped in the usual sterile fashion. Lidocaine 1% was infiltra yamilka locally. An 18-gauge needle was used to access the right IJ vein. Guidewire was passed. Positi on was confirmed with fluoroscopy. A counterincision was made on the right chest. Tunneling device was used to tunnel the catheter between the 2 wounds. Seldinger technique used and then tip of the c atheter placed in the SVC under fluoroscopy. Catheter was flushed with heparin and packed with hepar in with good blood flow. Then 3-0 chromic used to approximate the subcutaneous tissue and 3-0 nylon used to secure the tube to the chest wall. Sterile dressing was applied. The patient was awakened a nd taken to recovery room in good general condition and a chest x-ray has been ordered. VALENTINE/CHARLA Voice ID: [id number] Report ID: [id number]
--- NOTE | 2018-03-09 01:12 | PN ---
Date of Progress Note: 03/08/2018 Chief Complaint: Accelerated chronic kidney disease, advanced chronic kidney disease. The patient is to start dialysis for severe persistent azotemia. The patient has chronic kidney disease stage 5, progressing to end-stage renal disease. The patient underwent tunneled dialysis catheter insertion today and dialysis was scheduled for today to control azotemia and obtain ultrafiltration. Review of Systems: Respiratory: The patient denies PND, orthopnea. Cardiovascular: Denies chest pain, palpitations. Physical Examination: Lungs: Few crackles at bases. HEART: S1, S2. Systolic murmur 2/6 in the left lower sternal border. Abdomen: Soft, nontender. EXTREMITIES: Slight edema in both legs. Laboratory Data: Potassium 3.7, bicarbonate 22, BUN 58, creatinine 6.2, estimated GFR 11. WBC 8.4. Calcium 7.7 and phosphorus 5.1. Serum protein electrophoresis is pending. Impression: 1. New onset of end-stage renal disease. The patient will start dialysis. 2. Persistent anemia. The patient received blood transfusion, re-evaluate iron status and initiate iron supplementation. 3. The patient may benefit from PARAS when iron stores are adequate. 4. Hypertension. Blood pressure is controlled. 5. Renal osteodystrophy. Phosphorus level is controlled. At this point, phosphorus is 4.8. Continue low-phosphorus diet. 6. Serum protein electrophoresis was done during this admission to rule out monoclonal gammopathy of unknown significance and the results are pending. MARSHA/CHARLA Voice ID: [id number] Report ID: [id number] RUTH
[2018-03-09] MEDS: HYDROCODONE/APAP 5/325 MG TAB PO PRN ×3 (05:14→20:18)
[2018-03-09] MEDS: INSULIN -REGULAR HUMAN 50 UNIT/0.5 ML ML SQ SCH ×4 (07:30→20:18)
[2018-03-09 07:42] LABS: Magnesium 2.1 mg/dL (1.8-2.4); Potassium 3.7 mmol/L (3.5-5.1)
[2018-03-09 08:44] LABS: Absolute Lymphocytes (CBC) 1.5 K/uL (0.7-4.9); Absolute Neutrophil 6.9 K/uL (1.8-8.0); Basophils % 0.9 % (0-1.3); Eosinophils % 2.3 % (0-4.4); Hematocrit 23.8 % (39.6-49.0); Lymphocytes % 15.8 % (15.3-44.8); MCH 27.6 pg (27.0-35.0); MCV 80.6 fL (80-100); MPV 8.2 fL (7.6-11.3); Monocytes % 9.9 % (3.3-12.3); RBC Red Blood Cell Count 2.95 M/uL (4.33-5.43)
[2018-03-09] MEDS: ISOSORBIDE MONO SR 60 MG TAB PO SCH (09:39)
[2018-03-09] MEDS: AMLODIPINE 10 MG TAB PO SCH (09:40)
[2018-03-09] MEDS: PANTOPRAZOLE 40MG TABLET PO SCH (09:40)
[2018-03-09] MEDS: CARVEDILOL 25 MG TAB PO SCH ×2 (09:40→20:17)
[2018-03-09] MEDS: DOCUSATE NA 100 MG CAP PO SCH ×2 (09:40→20:17)
[2018-03-09] MEDS: ATORVASTATIN 20 MG TAB PO SCH (09:41)
[2018-03-09] MEDS: EPOETIN ALFA 10,000 UNIT/ML VIAL IV SCH (10:59)
--- NOTE | 2018-03-09 12:22 | P.PN ---
Subjective Date of Service: 03/09/18 Primary Care Provider: [facility]; Nephrology-Dr. Valiente Subjective: Doing well Physical Examination - Vital Signs Temperature: 98.5 F Blood Pressure: 160/89 Pulse: 87 Respirations: 18 Pulse Ox (%): 93 - Physical Exam General: Alert, In no apparent distress, Oriented x3, Cooperative HEENT: Atraumatic Neck: Supple Respiratory: Clear to auscultation bilaterally, Normal air movement Cardiovascular: Normal pulses, Regular rate/rhythm Gastrointestinal: Normal bowel sounds, Soft and benign, Non-distended, No tenderness, No masses, No rebound, No guarding Musculoskeletal: No erythema, No tenderness, No warmth Integumentary: No erythema, No warmth, No cyanosis Neurological: Normal speech, Normal strength at 5/5 x4 extr, Normal tone, Normal affect - Studies Microbiology Data (last 24 hrs): 03/03/18 14:00 Blood - Blood Aerobic Blood Culture - Final No growth in 5 days. 03/03/18 14:00 Blood - Blood Anaerobic Blood Culture - Final No growth in 5 days. 03/03/18 12:22 Blood - Blood Aerobic Blood Culture - Final No growth in 5 days. 03/03/18 12:22 Blood - Blood Anaerobic Blood Culture - Final Medications List Reviewed: Yes Assessment & Plan - Problems (Diagnosis) (1) Anemia Current Visit: Yes Status: Acute Plan: Anemia likely of chronic disease. Will continue to monitor closely. Qualifiers: Anemia type: due to chronic kidney disease Chronic kidney disease stage: on chronic dialysis Qualified Code(s): N18.6 - End stage renal disease; D63.1 - Anemia in chronic kidney disease; Z99.2 - Dependence on renal dialysis (2) End stage renal disease Current Visit: Yes Status: Acute Plan: Arrangements for outpatient dialysis currently being arranged. Once this has been arranged the patient can be discharged. Case discussed with nephrology. (3) SHRADDHA (acute kidney injury) Current Visit: Yes Status: Acute Plan: Patient with acute renal injury. Patient now with chronic dialysis. Home once dialysis is arranged. (4) Hypertension Onset Date: 03/04/18 Current Visit: Yes Status: Chronic Plan: Continue with medication. Qualifiers: Hypertension type: essential hypertension Qualified Code(s): I10 - Essential (primary) hypertension (5) Spinal stenosis Current Visit: Yes Status: Chronic Plan: Patient has spinal stenosis. Will discuss with orthopedics. Orthopedics desires MRI for further assessment. MRI machine down at this time. Will check to see when this will be available. Will need to consider bone scan if MRI remains unavailable. Will check to see how he has responded with physical therapy. Qualifiers: Spinal region: lumbar Neurogenic claudication status: unspecified Qualified Code(s): M48.061 - Spinal stenosis, lumbar region without neurogenic claudication Discharge Plan: Home Plan to discharge in: 24 Hours Time Spent Managing Pts Care (In Minutes): 55
--- NOTE | 2018-03-09 15:01 | P.PN ---
Date of Service: 03/09/18 S: PATIENT HAD DIALYSIS TODAY. THERAPY CAME BY TWICE WHILE PATIENT IN DIALYSIS. SEDATED, SLEEPING NOW. O: AFEBRILE, VSS, SEDIMENTATION RATE 67 H; URIC ACID 7.3 h, (nl 3.5-7.2); C- REACTIVE PROTEIN 19.5, (nl <3.0); ASPIRATE LEFT KNEE YELLOW, CULTURES LEFT KNEE STILL REPORTED PRELIMINARY, NO GROWTH. PATIENT DID NOT WORK WITH PT TODAY. A: CHRONIC 2-3 MONTH HISTORY OF DECLINING CAPABILITIES. ASPIRATE LEFT KNEE ESSENTIALLY NEGATIVE, EXCEPT FOR FEW CPPD CRYSTALS. STILL HAVE CONCERN THAT CHRONIC INFECTION MAY BE PART OF L4-5 DISC DISEASE WITH MARKED ELEVATION OF SEDIMENTATION RATE AND C-REACTIVE PROTEIN. P: MRI MAYBE NOT AVAILABLE TOMORROW. DR. VERMA' NOTE INDICATES MACHINE IS DOWN.
--- NOTE | 2018-03-09 17:21 | PN ---
Date of Progress Note: 03/09/2018 Subjective: The patient is doing better, still has weakness in the lower extremity. The patient sec ond session of dialysis tolerated well. Physical Examination: Vital Signs: Blood pressure 160/89, pulse of 87. The patient had still good urine output. Chest: Clear to auscultation. Heart: S1, S2. Regular. Abdomen: Soft, nontender. Extremities: Trace edema. Laboratory Data: WBC 9.6, H and H 8.1/23.8, platelets of 198. Sodium 141, potassium 3.7, bicarb 24, BUN 40, creatinine 4.8, calcium 7.8, magnesium 2.1. Medications: Current medications the patient on include: 1.Epogen. 2.Norvasc 10. 3.Atorvastatin. 4.Carvedilol 25 b.i.d. 5.Hydralazine. 6.Isosorbide. 7.Gabapentin. 8.Zofran. 9.Pantoprazole. Assessment And Plan: 1.End-stage renal disease. We will continue the patient on dialysis. The patient is going to be di alyzed on Thursday, Thursday and Thursday from now on. 2.Secondary hyperparathyroidism, stable. Continue to monitor. 3.Hypokalemia. The patient being dialyzed on high potassium bath. 4.Hypertension. We will utilize the blood pressure to establish better volume control. Continue ul trafiltration. 5.Lower extremity weakness. CT show spinal stenosis. Follow up with ortho, needing MRI. Case discussed with Dr. Barakat, who agreed on the plan. BRETT/CHARLA Voice ID: [id number] Report ID: [id number]
--- NOTE | 2018-03-09 19:22 | RAD REPORT ---
EXAM DESCRIPTION: MRI - Lumbar Spine Wo Con - 03/09/2018 7:06 pm CLINICAL HISTORY: Leg radiculopathy COMPARISON: March [address] TECHNIQUE: Sagittal T1, T2 and STIR weighted sequences were obtained. Axial T1 and T2 sequences were obtained through the lumbar disc levels. FINDINGS: L1-2, L2-3, and L3-4 demonstrate no significant abnormality The L4-5 disc is thinned. A disc bulge with ligamentum flavum and facet hypertrophy is present. The t hecal sac measures 10 millimeters. Mild narrowing of the neural foramina bilaterally is seen. Small S chmorl's node is present. Right facet hypertrophy L5-S1 results in minimal narrowing of the right neural foramina. A minimal di sc bulge is present No significant abnormal signal within the bones is noted IMPRESSION: Spondylosis L4-5 resulting in mild bilateral foraminal stenosis
[2018-03-09] MEDS: NORTRIPTYLINE HCL 25 MG CAP PO SCH (20:17)
[2018-03-09] MEDS: GABAPENTIN 300 MG CAP PO SCH (20:17)
[2018-03-10 06:16] LABS: Absolute Lymphocytes (CBC) 2.2 K/uL (0.7-4.9); Absolute Monocytes 1.2 K/uL (0.1-1.3); Absolute Neutrophil 7.1 K/uL (1.8-8.0); Basophils % 0.4 % (0-1.3); Eosinophils % 2.9 % (0-4.4); Hematocrit 23.8 % (39.6-49.0); Lymphocytes % 20.1 % (15.3-44.8); MCH 28.2 pg (27.0-35.0); MPV 7.9 fL (7.6-11.3); Monocytes % 10.7 % (3.3-12.3); RBC Red Blood Cell Count 3.01 M/uL (4.33-5.43)
[2018-03-10 06:32] LABS: Magnesium 2.1 mg/dL (1.8-2.4); Potassium 3.8 mmol/L (3.5-5.1)
[2018-03-10] MEDS: INSULIN -REGULAR HUMAN 50 UNIT/0.5 ML ML SQ SCH ×4 (07:30→20:32)
[2018-03-10] MEDS: DOCUSATE NA 100 MG CAP PO SCH ×2 (10:24→20:28)
[2018-03-10] MEDS: PANTOPRAZOLE 40MG TABLET PO SCH (10:24)
[2018-03-10] MEDS: CARVEDILOL 25 MG TAB PO SCH ×2 (10:24→20:29)
[2018-03-10] MEDS: ATORVASTATIN 20 MG TAB PO SCH (10:24)
[2018-03-10] MEDS: ISOSORBIDE MONO SR 60 MG TAB PO SCH (10:24)
[2018-03-10] MEDS: AMLODIPINE 10 MG TAB PO SCH (10:24)
--- NOTE | 2018-03-10 10:33 | P.PN ---
Subjective Date of Service: 03/10/18 Primary Care Provider: [facility]; Nephrology-Dr. Valiente Subjective: Improving (Still with some weakness to the left lower extremity) Physical Examination - Vital Signs Temperature: 97.5 F Blood Pressure: 184/93 Pulse: 87 Respirations: 20 Pulse Ox (%): 92 - Physical Exam General: Alert, In no apparent distress, Oriented x3, Cooperative HEENT: Atraumatic Neck: Supple Respiratory: Clear to auscultation bilaterally, Normal air movement Cardiovascular: Normal pulses, Regular rate/rhythm Gastrointestinal: Normal bowel sounds, Soft and benign, Non-distended, No masses , No rebound, No guarding Musculoskeletal: No erythema, No tenderness, No warmth Neurological: Normal speech, Normal affect, Abnormal strength (Weakness noted to the left lower extremity) - Studies Medications List Reviewed: Yes Assessment & Plan - Problems (Diagnosis) (1) Anemia Current Visit: Yes Status: Acute Plan: Anemia likely of chronic disease. Overall stable. Will continue to monitor closely. Qualifiers: Anemia type: due to chronic kidney disease Chronic kidney disease stage: on chronic dialysis Qualified Code(s): N18.6 - End stage renal disease; D63.1 - Anemia in chronic kidney disease; Z99.2 - Dependence on renal dialysis (2) End stage renal disease Current Visit: Yes Status: Acute Plan: Patient now on dialysis. Arrangements for outpatient dialysis has been arranged. He will continue with Thursday, Thursday and Thursday dialysis. Patient still unsafe to be discharge due to left lower extremity weakness. This has been long-standing. MRI shows spondylosis to the L4-L5 resulting in bilateral foraminal stenosis. Will continue work with physical therapy. Patient is agreeable to skilled placement. Will have adoption social worker help in this process. (3) SHRADDHA (acute kidney injury) Current Visit: Yes Status: Acute Plan: Patient with acute renal injury. Patient now on chronic dialysis. Dialysis has been arranged. (4) Hypertension Onset Date: 03/04/18 Current Visit: Yes Status: Chronic Plan: Continue to adjust medication for better control. Qualifiers: Hypertension type: essential hypertension Qualified Code(s): I10 - Essential (primary) hypertension (5) Spinal stenosis Current Visit: Yes Status: Chronic Plan: Patient has spinal stenosis. Patient with left lower extremity weakness. Will continue to have him work with physical therapy. MRI shows spondylosis to the L4-L5 region resulting in bilateral foraminal stenosis. Will recommend skilled placement. Patient agrees to this. Patient reports this has been present for several months and getting worse. Patient would benefit with skilled placement. Patient high risk for falls. Qualifiers: Spinal region: lumbar Neurogenic claudication status: unspecified Qualified Code(s): M48.061 - Spinal stenosis, lumbar region without neurogenic claudication (6) Spondylosis Current Visit: Yes Status: Acute Plan: MRI shows spondylosis to L4-L5. Continue with physical therapy. Recommend skilled placement. Patient is agreeable to this. Awaiting placement approval. Qualifiers: Spinal region: lumbar Spinal osteoarthritis complication: unspecified spinal osteoarthritis Qualified Code(s): M47.816 - Spondylosis without myelopathy or radiculopathy, lumbar region (7) Foraminal stenosis of lumbar region Current Visit: Yes Status: Acute Plan: Continue as above. Recommend skilled placement. Will have patient continue to work with physical therapy. (8) Weakness Onset Date: 03/04/18 Current Visit: Yes Status: Acute Plan: Left lower extremity weakness. This is chronic. MRI shows spondylosis and foraminal stenosis. Continue physical therapy. Recommend skilled placement. Patient agreeable to this. Will have adoption social worker help with placement. Discharge Plan: Other (Skilled facility placement) Plan to discharge in: 24 Hours Time Spent Managing Pts Care (In Minutes): 55
[2018-03-10] MEDS ORDERED: TRAMADOL HCL 50 MG TAB PO PRN (13:10)
[2018-03-10] MEDS ORDERED: PNEUMOCOCCAL VACCINE 0.5 ML IMVAC ONE (14:00)
[2018-03-10] MEDS: HYDROCODONE/APAP 7.5/325 MG TAB PO PRN (14:24)
--- NOTE | 2018-03-10 15:25 | PN ---
Date of Progress Note: 03/10/2018 Subjective: The patient is doing slightly better. Started participating with physical therapy. Blo od pressure today is slightly on the upper side. Physical Examination: Vital Signs: Blood pressure 184/93, pulse of 87, afebrile. Yesterday, had dialysis, managed to parag ve 1400. Chest: Clear to auscultation. Heart: S1, S2. Regular. Abdomen: Soft nontender. Extremity: Trace edema. Neuro: Weakness on the right leg. Laboratory Data: WBC 10.8, H and H 8.5/23.8, platelet 221. Sodium 141, potassium 3.8, bicarb 27, BU N 27, creatinine 3.9, calcium 8.1, phosphor of 4.8. Current Medications: The patient on includes; 1.Epogen. 2.Lovenox. 3.Norvasc 10. 4.Carvedilol. 5.Isosorbide. 6.Gabapentin 300. 7.Tylenol. Imaging: MRI for the lumbar spine spondylosis with stenosis. Assessment And Plan: 1.End-stage renal disease. We will continue the patient on dialysis. The patient is scheduled for dialysis today. Then the patient is going to be Thursday, Thursday, and Thursday. Waiting for out yara ent setup. We will follow up. 2.Hypokalemia with hypertension, patient hyper, aldosterone was ruled out. I am going to start the patient on aldosterone and we will follow up blood pressure after dialysis. 3.Spinal stenosis. 4.Diabetes nephropathy. Continue PT/OT. Plan for [facility] with outpatient physical therapy. PENELOPE Voice ID: [id number] Report ID: [id number]
[2018-03-10] MEDS: EPOETIN ALFA 10,000 UNIT/ML VIAL IV SCH (16:21)
[2018-03-10] MEDS: ENOXAPARIN 30 MG/0.3 ML SQ SCH (19:30)
[2018-03-10] MEDS: HYDRALAZINE HCL 25 MG TABLET PO SCH (20:28)
[2018-03-10] MEDS: GABAPENTIN 300 MG CAP PO SCH (20:29)
[2018-03-10] MEDS: NORTRIPTYLINE HCL 25 MG CAP PO SCH (20:29)
[2018-03-11 06:09] LABS: Absolute Monocytes 1.2 K/uL (0.1-1.3); Absolute Neutrophil 7.3 K/uL (1.8-8.0); Basophils % 0.8 % (0-1.3); Eosinophils % 3.4 % (0-4.4); Hematocrit 24.5 % (39.6-49.0); Lymphocytes % 18.2 % (15.3-44.8); MCV 79.3 fL (80-100); MPV 7.8 fL (7.6-11.3); Monocytes % 11.1 % (3.3-12.3); RBC Red Blood Cell Count 3.09 M/uL (4.33-5.43)
[2018-03-11 06:24] LABS: Magnesium 1.8 mg/dL (1.8-2.4); Potassium 4.1 mmol/L (3.5-5.1)
[2018-03-11] MEDS ORDERED: MAGNESIUM SULFATE 1 gm IVPB 1 GM/100 ML BAG IV ONE (06:36)
[2018-03-11] MEDS: INSULIN -REGULAR HUMAN 50 UNIT/0.5 ML ML SQ SCH ×4 (07:30→20:27)
[2018-03-11] MEDS ORDERED: SPIRONOLACTONE 25 MG TABLET PO SCH (09:00)
[2018-03-11] MEDS: GABAPENTIN 300 MG CAP PO SCH ×2 (09:06→20:27)
[2018-03-11] MEDS: PANTOPRAZOLE 40MG TABLET PO SCH (09:06)
[2018-03-11] MEDS: ISOSORBIDE MONO SR 60 MG TAB PO SCH (09:06)
[2018-03-11] MEDS: DOCUSATE NA 100 MG CAP PO SCH ×2 (09:07→20:26)
[2018-03-11] MEDS: ATORVASTATIN 20 MG TAB PO SCH (09:07)
[2018-03-11] MEDS: AMLODIPINE 10 MG TAB PO SCH (09:07)
[2018-03-11] MEDS: CARVEDILOL 25 MG TAB PO SCH ×2 (09:08→20:27)
[2018-03-11] MEDS: HYDRALAZINE HCL 25 MG TABLET PO SCH ×3 (09:11→20:27)
--- NOTE | 2018-03-11 12:09 | P.PN ---
Subjective Date of Service: 03/11/18 Primary Care Provider: [facility]; Nephrology-Dr. Valiente Subjective: Doing well Physical Examination - Vital Signs Temperature: 99.8 F Blood Pressure: 160/91 Pulse: 87 Respirations: 18 Pulse Ox (%): 98 - Physical Exam General: Alert, In no apparent distress, Oriented x3, Cooperative HEENT: Atraumatic Neck: Supple Respiratory: Clear to auscultation bilaterally, Normal air movement Cardiovascular: Normal pulses, Regular rate/rhythm Gastrointestinal: Normal bowel sounds, Soft and benign, Non-distended Musculoskeletal: No erythema, No tenderness, No warmth Integumentary: No erythema, No warmth, No cyanosis Neurological: Normal speech, Normal tone, Abnormal strength (Weakness to the left lower extremity but improved. Patient working with physical therapy.) - Studies Medications List Reviewed: Yes Assessment & Plan - Problems (Diagnosis) (1) Anemia Current Visit: Yes Status: Acute Plan: Anemia likely of chronic disease. Overall stable. Will continue to monitor closely. Qualifiers: Anemia type: due to chronic kidney disease Chronic kidney disease stage: on chronic dialysis Qualified Code(s): N18.6 - End stage renal disease; D63.1 - Anemia in chronic kidney disease; Z99.2 - Dependence on renal dialysis (2) End stage renal disease Current Visit: Yes Status: Acute Plan: Patient now on dialysis. Patient has been accepted to go to a skilled facility. Arrangements for dialysis from the skilled facilities currently being arranged. Once this has been arranged the patient can be discharged. Patient will continue with dialysis Mondays, Wednesdays and Fridays. Patient will go to skilled facility to increase his strength due to MRI findings spondylosis to the lumbar spine. (3) SHRADDHA (acute kidney injury) Current Visit: Yes Status: Acute Plan: Patient with acute renal injury. Patient now on chronic dialysis. Once dialysis arrange from skilled facility then the patient can be discharged. (4) Hypertension Onset Date: 03/04/18 Current Visit: Yes Status: Chronic Plan: Continue to adjust medication for better control. Qualifiers: Hypertension type: essential hypertension Qualified Code(s): I10 - Essential (primary) hypertension (5) Spinal stenosis Current Visit: Yes Status: Chronic Plan: Patient has spinal stenosis. Patient with left lower extremity weakness. Will continue to have him work with physical therapy. MRI shows spondylosis to the L4-L5 region resulting in bilateral foraminal stenosis. Patient accepted for skilled placement to continue rehabilitation. Patient has been accepted. Awaiting arrangements for dialysis from skilled therapy facility. Qualifiers: Spinal region: lumbar Neurogenic claudication status: unspecified Qualified Code(s): M48.061 - Spinal stenosis, lumbar region without neurogenic claudication (6) Spondylosis Current Visit: Yes Status: Acute Plan: MRI shows spondylosis to L4-L5. Continue with physical therapy. Qualifiers: Spinal region: lumbar Spinal osteoarthritis complication: unspecified spinal osteoarthritis Qualified Code(s): M47.816 - Spondylosis without myelopathy or radiculopathy, lumbar region (7) Foraminal stenosis of lumbar region Current Visit: Yes Status: Acute Plan: Continue as above. (8) Weakness Onset Date: 03/04/18 Current Visit: Yes Status: Acute Plan: Left lower extremity weakness. This is chronic. MRI shows spondylosis and foraminal stenosis. Continue physical therapy. Continue as above Discharge Plan: Other (Skilled placement facility) Plan to discharge in: 24 Hours Time Spent Managing Pts Care (In Minutes): 55
--- NOTE | 2018-03-11 13:42 | P.PN ---
Date of Service: 03/11/18 S: PATIENT C/O PAIN LEFT KNEE, EFFUSION ASPIRATE LEFT KNEE PROVED NEGATIVE FOR INFECTION. FEW EXTRACELLULAR CALCIUM PYROPHOSPHATE CRYSTALS SEEN WAS ONLY POSITIVE FINDING. O: AFEBRILE, VSS, SEDIMENTATION RATE 67 H; URIC ACID 7.3 h, (nl 3.5-7.2); C- REACTIVE PROTEIN 19.5, (nl <3.0); ASPIRATE FOR CULTURES LEFT KNEE FINAL REPORT NEGATIVE, NO GROWTH AEROBIC OR ANAEROBIC. PATIENT MADE PROGRESS WITH PT TODAY. WENT 12',12',AND 24' WITH MINIMAL ASSIST WITH RW. MRI SHOWED SPONDYLOSIS L4-5 WITH MILD BILAT. STENOSIS, 10 MM DIAMETER THECAL SAC. RIGHT FACET HYPERTROPHY L5 -S1 SHOWS MINIMAL NARROWING RT. NEURAL FORAMINA. NO ABN. SIGNAL WITHIN BONES TO SUGGEST SEPTIC DISCITIS. A: CHRONIC 2-3 MONTH HISTORY OF DECLINING CAPABILITIES WITH LLE. ASPIRATE LEFT KNEE ESSENTIALLY NEGATIVE, EXCEPT FOR FEW EXTRACELLULAR CPPD CRYSTALS. P: PATIENT BEING TRANSFERRED TO SN[facility] TODAY.
[2018-03-11] MEDS: SPIRONOLACTONE 25 MG TABLET PO SCH (14:40)
--- NOTE | 2018-03-11 15:05 | PN ---
Date of Progress Note: 03/11/2018 Subjective: The patient is still complaining from leg pain. The patient is scheduled for dialysis t [facility]. Status post dialysis yesterday. We managed to remove 1400. Physical Examination: Vital Signs: Blood pressure 160/90, pulse of 87, afebrile. Chest: Clear to auscultation. Heart: S1, S2. Regular. Abdomen: Soft, nontender. Extremities: Trace edema. Laboratory Data: WBC 11, H and H 8.7/24.5, and platelets 224. Sodium 140, potassium 4.1, bicarb 28, BUN 19, creatinine 3.2, calcium of 8, magnesium 1.9. Medications: Current medications the patient on its include spironolactone 25 daily, Lovenox, hydral azine 25 b.i.d., carvedilol 25 b.i.d., Norvasc 10, isosorbide, gabapentin 300 b.i.d., nortriptyline, hydrocodone 1 tablet every 6 hours, tramadol as needed. Assessment And Plan: 1.End-stage renal disease. The patient already scheduled for dialysis with [facility]. We will continue on that as scheduled, as Thursday, Thursday, Thursday. The patient verbalized understanding and preference to go to [facility]. I discussed with Social Service to send a referral to [facility] and we will follow up. 2.Hypertension. I am going to go ahead and increase hydralazine to 25 t.i.d. We will increase spir onolactone to 50 mg daily and we will follow up. 3.Anemia of chronic kidney disease, stable. I am going to continue PARAS. 4.Deconditioning, low back pain. The patient is going to need SNF and rehab. We will arrange for S NF with [facility]. I had discussed the case with Dr. Barakat and agreed on the plan. Discussed the case with pillowcase cleaner. PENELOPE Voice ID: [id number] Report ID: [id number]
[2018-03-11] MEDS: ENOXAPARIN 30 MG/0.3 ML SQ SCH (17:48)
[2018-03-11] MEDS: HYDROCODONE/APAP 7.5/325 MG TAB PO PRN (20:26)
[2018-03-11] MEDS: NORTRIPTYLINE HCL 25 MG CAP PO SCH (20:29)
[2018-03-12 02:09] VITALS: O2SAT 97
[2018-03-12 03:06] LABS: HBsAG Nonreactive (Nonreactive)
[2018-03-12] MEDS ORDERED: POLYETHYL GLY 3350 17 GM/DOSE PO PRN (04:12)
[2018-03-12 05:09] LABS: Absolute Lymphocytes (CBC) 1.8 K/uL (0.7-4.9); Absolute Neutrophil 6.5 K/uL (1.8-8.0); Basophils % 0.7 % (0-1.3); Eosinophils % 4.2 % (0-4.4); Hematocrit 23.7 % (39.6-49.0); Lymphocytes % 18.1 % (15.3-44.8); MCH 27.1 pg (27.0-35.0); MCV 80.1 fL (80-100); MPV 7.9 fL (7.6-11.3); Monocytes % 10.3 % (3.3-12.3); RBC Red Blood Cell Count 2.95 M/uL (4.33-5.43)
[2018-03-12 05:30] LABS: Magnesium 2.2 mg/dL (1.8-2.4)
[2018-03-12] MEDS: INSULIN -REGULAR HUMAN 50 UNIT/0.5 ML ML SQ SCH ×2 (07:30→11:30)
[2018-03-12] MEDS: SPIRONOLACTONE 25 MG TABLET PO SCH (08:32)
[2018-03-12] MEDS: HYDRALAZINE HCL 25 MG TABLET PO SCH ×2 (08:32→14:13)
[2018-03-12] MEDS: GABAPENTIN 300 MG CAP PO SCH (08:32)
[2018-03-12] MEDS: PANTOPRAZOLE 40MG TABLET PO SCH (08:32)
[2018-03-12] MEDS: DOCUSATE NA 100 MG CAP PO SCH (08:32)
[2018-03-12 08:33] VITALS: BP 159/94; TEMP 98.1
[2018-03-12] MEDS: AMLODIPINE 10 MG TAB PO SCH (08:33)
[2018-03-12] MEDS: CARVEDILOL 25 MG TAB PO SCH (08:33)
[2018-03-12] MEDS: ISOSORBIDE MONO SR 60 MG TAB PO SCH (08:33)
[2018-03-12] MEDS: EPOETIN ALFA 10,000 UNIT/ML VIAL IV SCH (09:56)
--- NOTE | 2018-03-12 11:22 | P.DS ---
Admission Date: 03/03/18 Discharge Date: 03/12/18 Primary Care Provider: [facility]; Nephrology-Dr. Valiente Disposition: TRANSFER TO SNF - MEDICAL Discharge Condition: GOOD Reason for Admission: Weakness, Acute on chronic renal failure Consultations: Nephrology-Dr. Valiente Orthopedics-Dr. Branham Neurology-Dr. Dubois Surgery-Dr. Rainey Procedures: Surgical procedure: Right IJ Tesio catheter for dialysis placement CT scan lumbar: FINDINGS: No acute lumbar spine fracture seen. A prominent degenerative disc disease pattern is seen at L4-5 with endplate sclerosis. Spinal canal stenosis is likely present at this level, although difficult to fully assess by CT. No evidence of a paraspinal mass or hematoma. Several renal cysts are noted bilaterally. IMPRESSION: Prominent degenerative change at L4-5 is seen with probable significant canal stenosis at this level. MRI lumbar: FINDINGS: L1-2, L2-3, and L3-4 demonstrate no significant abnormality The L4-5 disc is thinned. A disc bulge with ligamentum flavum and facet hypertrophy is present. The thecal sac measures 10 millimeters. Mild narrowing of the neural foramina bilaterally is seen. Small Schmorl's node is present. Right facet hypertrophy L5-S1 results in minimal narrowing of the right neural foramina. A minimal disc bulge is present No significant abnormal signal within the bones is noted IMPRESSION: Spondylosis L4-5 resulting in mild bilateral foraminal stenosis Echocardiogram: Ejection fraction 73%: LEFT VENTRICULAR WALL MOTION: NORMAL. DOPPLER/COLOR FLOW: MODERATE AORTIC STENOSIS, PEAK/MEAN GRADIENT 48/26mmHg. ESTIMATED AORTIC VALVE AREA 1.3 CENTIMETERS SQUARED. MILD MITRAL REGURGITATION. COMMENTS: NORMAL LEFT VENTRICULAR EJECTION FRACTION. LEFT VENTRICULAR HYPERTROPHY. MITRAL ANNULAR CALCIFICATION. MODERATE AORTIC STENOSIS. MILD MITRAL REGURGITATION Renal ultrasound: COMPARISON: [facility] Protocol dated 03/03/2018 FINDINGS: Both kidneys are echogenic. Benign cortical cysts are present in both kidneys, the largest on the right inferior pole measuring 3.8 x 2.7 cm. The largest cyst on the left is laterally located measuring 4.7 x 4.2 cm. The right kidney measures 11.8 x 6.2 x 5.1 cm. No hydronephrosis solid mass or perinephric fluid. The left kidney measures 11.9 x 7.0 x 5.9 cm. No hydronephrosis, solid mass or perinephric fluid. The urinary bladder is incompletely distended without gross abnormality seen. IMPRESSION: Bilateral echogenic kidneys noted compatible with underlying medical renal disease. Benign bilateral renal cysts. - Problems (1) Anemia Current Visit: Yes Status: Chronic Qualifiers: Anemia type: due to chronic kidney disease Chronic kidney disease stage: on chronic dialysis Qualified Code(s): N18.6 - End stage renal disease; D63.1 - Anemia in chronic kidney disease; Z99.2 - Dependence on renal dialysis (2) End stage renal disease Current Visit: Yes Status: Acute (3) SHRADDHA (acute kidney injury) Current Visit: Yes Status: Acute (4) Hypertension Onset Date: 03/04/18 Current Visit: Yes Status: Chronic Qualifiers: Hypertension type: essential hypertension Qualified Code(s): I10 - Essential (primary) hypertension (5) Spinal stenosis Current Visit: Yes Status: Chronic Qualifiers: Spinal region: lumbar Neurogenic claudication status: unspecified Qualified Code(s): M48.061 - Spinal stenosis, lumbar region without neurogenic claudication (6) Spondylosis Current Visit: Yes Status: Acute Qualifiers: Spinal region: lumbar 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 Condition started to worsen. Patient also reported some dizziness. No significant chest pain, fevers chills noted. In the ER patient found to have a hemoglobin of 7.9. Creatinine showed worsening renal function. CT scan revealed small bilateral pleural effusions. Degenerative changes to the lumbar spine also noted. Patient was admitted for further evaluation. Hospital Course: Patient presented weakness secondary to acute on chronic renal disease. Renal function was compromised. Nephrology was consulted. Renal ultrasound showed medical renal disease. Nephrology recommended initiation of dialysis as his condition worsened. Patient willing to start chronic dialysis. Surgery was consulted to place Tesio catheter. Patient tolerated procedure well. Patient continued with dialysis. Dialysis has been arranged as an outpatient. At discharge patient will go to a skilled placement facility to continue his care with physical therapy. Patient will need dialysis every Mondays, Wednesdays and Fridays. This has been arranged as an outpatient. Patient will follow up with nephrology in 1 week. Patient reported weakness to the lower extremities over several weeks. Patient with history of diabetic neuropathy. He had more weakness on the left side than right side. CT scan revealed degenerative changes to the L-spine. Orthopedics and Neurology were consulted to further assess. MRI confirms spondylosis to the L4-L5 region resulting in foraminal stenosis. Patient continue to work with physical therapy. Patient will go to skilled placement facility to continue to increase his strength. Patient may require pain management as an outpatient. At discharge patient will continue with gabapentin 300 mg 1 pill 3 times a day and nortriptyline 25 mg at bedtime. Patient taking hydrocodone as an outpatient. This can be continued. Patient may follow up with neurology as an outpatient. Patient has hypertension. Medications were adjusted during his stay. At discharge, Patient will continue with current medications-hydralazine 25 mg 1 pill 3 times a day, Aldactone 50 mg 1 pill once daily, carvedilol 25 mg 1 pill twice daily, and Norvasc 10 mg daily. Recommendation is to maintain blood pressures less 150/80. Further adjustment can be done by nephrology or his PCP. Patient has diabetes. Hemoglobin A1c well controlled at 5.5. This remained stable during his stay. Patient will continue with diet to control his diabetes. Recommendation is to maintain blood sugars less 140 fasting and less than 200 after meals. Further adjustment can be done by his PCP. Patient has hyperlipidemia. Patient will continue with his medication-Lipitor 20 mg daily. Patient has GERD. Official continue with Protonix 40 mg 1 pill once daily. Patient with history of CAD. Patient will continue with Imdur 60 mg daily. Vital Signs/Physical Exam: Temp Pulse Resp BP Pulse Ox 98.1 F 88 17 159/94 H 96 03/12/18 08:00 03/12/18 08:33 03/12/18 08:00 03/12/18 08:33 03/12/18 08:00 General: Alert, In no apparent distress, Oriented x3, Cooperative HEENT: Atraumatic Neck: Supple Respiratory: Clear to auscultation bilaterally, Normal air movement Cardiovascular: Normal pulses, Regular rate/rhythm Gastrointestinal: Normal bowel sounds, Soft and benign, Non-distended, No tenderness, No masses, No rebound, No guarding Musculoskeletal: No tenderness, No warmth Integumentary: No erythema, No warmth, No cyanosis Neurological: Normal affect, Abnormal strength (Weakness to the left lower extremity) Laboratory Data at Discharge: WBC 9.7 K/uL (4.3-10.9) 03/12/18 04:20 Hgb 8.0 g/dL (13.6-17.9) L 03/12/18 04:20 Hct 23.7 % (39.6-49.0) L 03/12/18 04:20 Plt Count 232 K/uL (152-406) 03/12/18 04:20 PT 12.8 SECONDS (9.5-12.5) H 03/03/18 14:00 INR 1.08 03/03/18 14:00 APTT 24.7 SECONDS (24.3-36.9) 03/03/18 14:00 Sodium 141 mmol/L (136-145) 03/12/18 04:20 Potassium 4.0 mmol/L (3.5-5.1) 03/12/18 04:20 BUN 27 mg/dL (7-18) H 03/12/18 04:20 Creatinine 4.40 mg/dL (0.55-1.3) H D 03/12/18 04:20 Glucose 141 mg/dL (74-106) H 03/12/18 04:20 Uric Acid 7.3 mg/dL (3.5-7.2) H 03/07/18 04:12 Phosphorus 4.8 mg/dL (2.5-4.9) 03/08/18 05:23 Magnesium 2.2 mg/dL (1.8-2.4) 03/12/18 04:20 Total Bilirubin 0.2 mg/dL (0.2-1.0) 03/06/18 05:33 AST 12 U/L (15-37) L 03/06/18 05:33 ALT 10 U/L (12-78) L 03/06/18 05:33 Alkaline Phosphatase 49 U/L (45-117) 03/06/18 05:33 Lipase 77 U/L (73-393) 03/03/18 14:00 Home Medications: Aspirin [Aspirin EC 81 MG] 81 mg PO DAILY 03/03/18 Atorvastatin Calcium 20 mg PO DAILY 03/03/18 Carvedilol 25 mg PO BID 03/03/18 Docusate Sodium [Colace] 100 mg PO BID 03/03/18 Gabapentin [Neurontin*] 300 mg PO TID 03/03/18 Hydrocodone/Acetaminophen [Lorcet 5-325 mg Tablet] 1 each PO Q6H PRN 03/03/18 Magnesium Oxide [Mag 0X*] 400 mg PO DAILY 03/03/18 Nortriptyline HCl 25 mg PO BEDTIME 03/03/18 Amlodipine [Norvasc*] 10 mg PO DAILY #30 tab 03/12/18 Hydralazine [Apresoline*] 25 mg PO TID #90 tab 03/12/18 Pantoprazole [Protonix Tab*] 40 mg PO DAILY #30 tab 03/12/18 Spironolactone [Aldactone*] 50 mg PO DAILY #60 tab 03/12/18 New Medications: Amlodipine [Norvasc*] 10 mg PO DAILY #30 tab Hydralazine [Apresoline*] 25 mg PO TID #90 tab Pantoprazole [Protonix Tab*] 40 mg PO DAILY #30 tab Spironolactone [Aldactone*] 50 mg PO DAILY #60 tab Patient Discharge Instructions: 1. Patient will need a follow up with his PCP in 1 week to follow up this hospitalization. Patient will be transferred to skilled facility continue his care. 2. Patient presented weakness secondary to acute on chronic renal disease. Renal function was compromised. Nephrology was consulted. Renal ultrasound showed medical renal disease. Nephrology recommended initiation of dialysis. Surgery was consulted to place Tesio catheter. Patient tolerated procedure well. Patient continued with dialysis. Dialysis has been arranged as an outpatient. At discharge patient will go to a skilled placement facility to continue his care. Patient will need dialysis every Mondays, Wednesdays and Fridays. This has been arranged. Patient will follow up with nephrology in 1 week. 3. Patient reported weakness to the lower extremities over several weeks. Patient with history of diabetic neuropathy. He had more weakness on the left side than right side. CT scan revealed degenerative changes to the L-spine. Neurology was consulted to further assess. MRI confirms spondylosis to the L4-L5 region resulting in foraminal stenosis. Patient continue to work with physical therapy. Patient will go to skilled placement facility to continue to increase his strength. Patient may require pain management as an outpatient. At discharge patient will continue with gabapentin 300 mg 1 pill 3 times a day and nortriptyline 25 mg at bedtime. Patient taking hydrocodone as an outpatient. This can be continued. Patient may follow up with neurology as an outpatient. 4. Patient has hypertension. Medications have been adjusted. Patient will continue with current medications-hydralazine 25 mg 1 pill 3 times a day, Aldactone 50 mg 1 pill once daily, carvedilol 25 mg 1 pill twice daily, and Norvasc 10 mg daily. Recommendation is to maintain blood pressures less 150/80. Further adjustment can be done by nephrology or his PCP. 5. Patient has diabetes. Hemoglobin A1c well controlled at 5.5. Patient will continue with diet to control his diabetes. Recommendation is to maintain blood sugars less 140 fasting and less than 200 after meals. Further adjustment can be done by his PCP. 6. Patient has hyperlipidemia. Patient will continue with his medication-Lipitor 20 mg daily. 7. Patient has GERD. Official continue with Protonix 40 mg 1 pill once daily. 8. Patient with history of CAD. Patient will continue with Imdur 60 mg daily. Diet: Renal Activity: Fall precautions Time spent managing pt's care (in minutes): 55
[2018-03-12] MEDS ORDERED: ATORVASTATIN 20 MG TAB PO SCH (21:00)
--- NOTE | 2018-03-12 22:09 | PN ---
Date of Progress Note: 03/12/2018 Chief Complaint: Acute kidney injury. Subjective: The patient developed accelerated chronic kidney disease on advanced chronic kidney dise ase, is started on dialysis for stage 5, progressing to end-stage renal disease. The patient underwe nt tunneled dialysis catheter. He is scheduled to have dialysis today. Procedure was well tolerated . Review of Systems: The patient denies fever or chills. Objective: Lungs: Few crackles at bases. Heart: S1, S2. Abdomen: Soft, benign. Extremities: Slight edema. Impression And Plan: 1.New onset of end-stage renal disease. The patient will continue dialysis. The patient received t ransfusion for anemia. Continue PARAS and evaluate iron stores periodically. Continue current dose of PARAS. 2.Hypertension. Blood pressure controlled. 3.Renal osteodystrophy. Phosphorus level is controlled. Continue low phosphorus diet and binders. EB/MODL Voice ID: [id number] Report ID: [id number]
== END 2018-03-12 17:48 | DRG 674 ==
LOC: ER 11:11 → ERHOLD 16:06 → OBSVTOIN 16:06 → INTOOBSV 16:06 → OBSVTOIN 17:22 → 4TH 19:30
PROVIDERS: ADMIT Family Medicine; ATTEND Family Medicine
PROC: 30233N1 Transfusion of Nonautologous Red Blood Cells into Peripheral Vein, Percutaneous Approach (ICD-10-PCS; 2018-03-04)
PROC: 0S9D3ZX Drainage of Left Knee Joint, Percutaneous Approach, Diagnostic (ICD-10-PCS; 2018-03-06)
PROC: 02HV33Z Insertion of Infusion Device into Superior Vena Cava, Percutaneous Approach (ICD-10-PCS; 2018-03-08)
PROC: 5A1D70Z Performance of Urinary Filtration, Intermittent, Less than 6 Hours Per Day (ICD-10-PCS; 2018-03-08)
PROC: 0JH63XZ Insertion of Tunneled Vascular Access Device into Chest Subcutaneous Tissue and Fascia, Percutaneous Approach (ICD-10-PCS; principal; 2018-03-08 09:45)
DX: N17.9 Acute kidney failure, unspecified (principal); I12.0 Hypertensive chronic kidney disease with stage 5 chronic kidney disease or end stage renal disease; D62 Acute posthemorrhagic anemia; N18.6 End stage renal disease; N25.0 Renal osteodystrophy; D63.1 Anemia in chronic kidney disease; M48.061 Spinal stenosis, lumbar region without neurogenic claudication; M47.816 Spondylosis without myelopathy or radiculopathy, lumbar region; E11.40 Type 2 diabetes mellitus with diabetic neuropathy, unspecified; E11.22 Type 2 diabetes mellitus with diabetic chronic kidney disease; E78.5 Hyperlipidemia, unspecified; K21.9 Gastro-esophageal reflux disease without esophagitis; M25.462 Effusion, left knee; E87.6 Hypokalemia; E11.21 Type 2 diabetes mellitus with diabetic nephropathy; M71.22 Synovial cyst of popliteal space [Baker], left knee; I35.0 Nonrheumatic aortic (valve) stenosis; K29.70 Gastritis, unspecified, without bleeding; E11.319 Type 2 diabetes mellitus with unspecified diabetic retinopathy without macular edema; H54.8 Legal blindness, as defined in USA; Z23 Encounter for immunization; Z79.82 Long term (current) use of aspirin; Z87.891 Personal history of nicotine dependence; Z79.1 Long term (current) use of non-steroidal anti-inflammatories (NSAID)
CPT/HCPCS: 36415; 71045; 72131; 72148; 74176; 76000; 76377; 76770; 80048; 80053; 80069; 80076; 81003; 81015; 82088; 82550; 82553; 82570; 82607; 82728; 82746; 82962; 83036; 83520; 83540; 83690; 83735; 83880; 83970; 84132; 84156; 84165; 84244; 84300; 84443; 84466; 84484; 84550; 85014; 85018; 85025; 85044; 85610; 85652; 85730; 86021; 86038; 86140; 86160; 86225; 86317; 86430; 86704; 86706; 86803; 86850; 86900; 86901; 87040; 87070; 87075; 87086; 87088; 87205; 87340; 87389; 87522; 89050; 89060; 90670; 90935; 93005; 93306; 93970; 94760; 96361; 96365; 96366; 97163; 99285; C1752; G0009; J0360; J0690; J1644; J1650; J2250; J3475; J7030; P9016; Q4081

== ENCOUNTER 2021-01-16 08:00 | Inpatient (IN) | payer OTHER ==
--- OUTSIDE RECORDS SUMMARY | 2021-01-16 08:03 | XMS REPORT | Continuity of Care Document ---
:1950 Author Organization [facility] t Address [address] [place] [address] Care Team Providers Name Role Phone Joe CARRASCO Attending Clinician Unavailable Singer SCHROEDER Attending Clinician Ace FELDMAN Attending Clinician Ace FELDMAN Admitting Clinician Problems This patient has no known problems. Allergies, Adverse Reactions, Alerts This patient has no known allergies or adverse reactions. Medications This patient has no known medications. Procedures This patient has no known procedures. Encounters Start End Encounter Admission Attending Care Care Encounter Source Date/Time Date/Time Type Type Clinicians Facility Department ID 2020-01-06 Outpatient [facility] [id number] 13:19:26 [facility] 2020-05-08 2020-05-08 Transition Jennifer Diaz [id number] 00:00:00 00:00:00 of Care Katlyn Castillo [id number] [place] [id number] 2020-05-04 2020-05-06 [facility] Sanjeev No [id number] 14:04:00 14:00:00 Encounter Tr Bello [id number] [place] [id number] [place] [id number] 2019-08-30 2019-08-30 Outpatient [facility]SE [facility]SE [id number] MH 12:00:00 12:00:00 Henrietta barrios [facility] 2019-06-21 2019-06-21 [id number] Results This patient has no known results.
[2021-01-16] MEDS ORDERED: NA CHLORIDE 0.9% 1,000 ML ONE (08:25)
[2021-01-16] MEDS ORDERED: FAMOTIDINE 20 MG/2 ML VIAL IV ONE (08:36)
[2021-01-16] MEDS ORDERED: ONDANSETRON 4 MG/2 ML VIAL ONE ×2 (08:36→14:04)
[2021-01-16 08:38] LABS: Absolute Lymphocytes (CBC) 0.9 K/uL (0.7-4.9); Basophils % 0.7 % (0-1.3); Hematocrit 34.4 % (39.6-49.0); Lymphocytes % 6.4 % (15.3-44.8); MPV 7.9 fL (7.6-11.3); RBC Red Blood Cell Count 4.23 M/uL (4.33-5.43)
--- NOTE | 2021-01-16 08:44 | RAD REPORT ---
EXAM DESCRIPTION: Toni Single View01/16/2021 8:38 am CLINICAL HISTORY: Shortness of breath COMPARISON: 2018 FINDINGS: Moderate bilateral pulmonary opacities. Heart is normal size. Small pleural effusions are probably present. IMPRESSION: Moderate bilateral pulmonary opacities probably pulmonary edema. Pneumonia can also hav e this appearance.
[2021-01-16 09:05] LABS: Protime INR 1.17
[2021-01-16 09:13] LABS: Bilirubin Direct 0.2 mg/dL (0-0.2); Bilirubin Total 0.6 mg/dL (0.2-1.0); CKMB Creatine Kinase MB 4.7 ng/mL (1.0-3.6); Magnesium 2.8 mg/dL (1.8-2.4); Potassium 4.2 mmol/L (3.5-5.1); Protein, Total 8.4 g/dL (6.4-8.2); Troponin (Emerg Dept Use Only) 0.22 ng/mL (0.0-0.045)
--- NOTE | 2021-01-16 09:50 | EDPHYS ---
Physician Documentation [facility] Name: Jamie Schulz Jr Age: 70 yrs Sex: Male : 1950 Arrival Date: 01/16/2021 Time: 08:02 Bed 3 Private MD: ED Physician Bert Noble HPI: 01/16 08:26 This 70 yrs old Black Male presents to ER via EMS with complaints of Nausea/Vomiting, kdr Shortness Of Breath. 08:26 The patient presents to the emergency department with nausea, that is mild, vomiting, kdr that is intermittent. Onset: The symptoms/episode began/occurred last night, About midnight. Possible causes: unknown. The symptoms are aggravated by nothing. The symptoms are alleviated by nothing. Associated signs and symptoms: Pertinent positives: SOB. Severity of symptoms: At their worst the symptoms were mild moderate just prior to arrival, in the emergency department the symptoms are unchanged. The patient has not experienced similar symptoms in the past. The patient has not recently seen a physician. Historical: - Allergies: 08:02 No Known Allergies; aa5 - PMHx: 08:02 Anemia; Essential Hypertension; Left Knee Efusion; Renal Disease; Dialysis; aa5 - PSHx: 08:02 Left arm dialysis fistula; aa5 - Immunization history:: Adult Immunizations up to date, Client reports receiving the 2nd dose of the Covid vaccine. - Social history:: Smoking status: Patient denies any tobacco usage or history of. ROS: 08:26 Constitutional: Negative for fever, chills, and weight loss, Eyes: Negative for injury, kdr pain, redness, and discharge, ENT: Negative for injury, pain, and discharge, Neck: Negative for injury, pain, and swelling, Cardiovascular: Negative for chest pain, palpitations, and edema, Back: Negative for injury and pain, : Negative for injury, bleeding, discharge, and swelling, MS/Extremity: Negative for injury and deformity, Skin: Negative for injury, rash, and discoloration, Neuro: Negative for headache, weakness, numbness, tingling, and seizure activity. Psych: Negative for depression, anxiety, suicide ideation, homicidal ideation, and hallucinations, Allergy/Immunology: Negative for hives, rash, and allergies, Endocrine: Negative for neck swelling, polydipsia, polyuria, polyphagia, and marked weight changes, Hematologic/Lymphatic: Negative for swollen nodes, abnormal bleeding, and unusual bruising. 08:26 Respiratory: Positive for shortness of breath, Negative for orthopnea, pleurisy, sputum production, wheezing. 08:26 Abdomen/GI: Positive for nausea and vomiting, Negative for abdominal pain, diarrhea, constipation, abdominal cramps, abdominal distension, black/tarry stool, rectal pain, rectal bleeding. 08:26 Skin: Positive for diaphoresis. kdr Exam: 08:26 Constitutional: This is a well developed, well nourished patient who is awake, alert, kdr and in no acute distress. Head/Face: Normocephalic, atraumatic. Eyes: Pupils equal round and reactive to light, extra-ocular motions intact. Lids and lashes normal. Conjunctiva and sclera are non-icteric and not injected. Cornea within normal limits. Periorbital areas with no swelling, redness, or edema. Neck: Trachea midline, no thyromegaly or masses palpated, and no cervical lymphadenopathy. Supple, full range of motion without nuchal rigidity, or vertebral point tenderness. No Meningismus. Chest/axilla: Normal chest wall appearance and motion. Nontender with no deformity. No lesions are appreciated. Cardiovascular: Regular rate and rhythm with a normal S1 and S2. No gallops, murmurs, or rubs. Normal PMI, no JVD. No pulse deficits. Respiratory: Lungs have equal breath sounds bilaterally, clear to auscultation and percussion. No rales, rhonchi or wheezes noted. No increased work of breathing, no retractions or nasal flaring. 08:30 Abdomen/GI: Soft, non-tender, with normal bowel sounds. No distension or tympany. No kdr guarding or rebound. No evidence of tenderness throughout. Back: No spinal tenderness. No costovertebral tenderness. Full range of motion. Skin: Warm, dry with normal turgor. Normal color with no rashes, no lesions, and no evidence of cellulitis. MS/ Extremity: Pulses equal, no cyanosis. Neurovascular intact. Full, normal range of motion. Neuro: Awake and alert, GCS 15, oriented to person, place, time, and situation. Cranial nerves II-XII grossly intact. Motor strength 5/5 in all extremities. Sensory grossly intact. Cerebellar exam normal. Normal gait. Psych: Awake, alert, with orientation to person, place and time. Behavior, mood, and affect are within normal limits. 08:31 ECG was reviewed by the Attending Physician. kdr Vital Signs: 08:02 BP 128 / 90; Pulse 115; Resp 18 S; Temp 97.5(O); Pulse Ox 95% on R/A; aa5 08:11 BP 128 / 90; Pulse 115; Resp 24; Temp 97.5(O); Pulse Ox 99% on 2 lpm NC; Weight 81.65 ld1 kg; Height 6 ft. 2 in. (187.96 cm); Pain 0/10; 08:35 BP 125 / 92; Pulse 114; Resp 24; Pulse Ox 100% ; bp 09:30 BP 130 / 93; Pulse 110; Resp 17; Pulse Ox 100% on R/A; ld1 10:30 BP 119 / 88; Pulse 108; Resp 18; Pulse Ox 100% on R/A; ld1 12:10 BP 123 / 95; Pulse 107; Resp 16; Pulse Ox 98% on R/A; ld1 13:30 BP 125 / 92; Pulse 108; Resp 16; Pulse Ox 96% ; bp 14:01 BP 128 / 94; Pulse 101; Resp 18; Pulse Ox 99% on 2 lpm NC; ld1 08:11 Body Mass Index 23.11 (81.65 kg, 187.96 cm) ld1 MDM: 09:50 Patient medically screened. kdr 17:02 Data reviewed: vital signs, nurses notes, lab test result(s), radiologic studies. kdr Counseling: I had a detailed discussion with the patient and/or guardian regarding: the historical points, exam findings, and any diagnostic results supporting the discharge/admit diagnosis, lab results, radiology results, the need for outpatient follow up. 01/16 08:05 Order name: Basic Metabolic Panel; Complete Time: 09:47 kdr 01/16 08:05 Order name: CBC with Diff; Complete Time: 09:47 kdr 01/16 08:05 Order name: LFT's; Complete Time: 09:47 kdr 01/16 08:05 Order name: Magnesium; Complete Time: 09:47 kdr 01/16 08:05 Order name: NT PRO-BNP; Complete Time: 09:47 kdr 01/16 08:05 Order name: PT-INR; Complete Time: 09:47 kdr 01/16 08:05 Order name: Troponin (emerg Dept Use Only); Complete Time: 09:47 kdr 01/16 08:07 Order name: Amylase, Serum; Complete Time: 09:47 kdr 01/16 08:07 Order name: Blood Culture Adult (2) kdr 01/16 08:07 Order name: Ckmb; Complete Time: 09:47 kdr 01/16 08:07 Order name: CPK; Complete Time: 09:47 kdr 01/16 08:07 Order name: Lactate; Complete Time: 09:47 kdr 01/16 08:07 Order name: Lipase; Complete Time: 09:47 kdr 01/16 08:07 Order name: Procalcitonin; Complete Time: 09:47 kdr 01/16 08:05 Order name: XRAY Chest (1 view); Complete Time: 09:47 kdr 01/16 08:07 Order name: Ptt, Activated; Complete Time: 09:47 kdr 01/16 08:07 Order name: Urine Microscopic Only kdr 01/16 08:08 Order name: glucometer results - FOR PT WITH NO ID; Complete Time: 09:47 aa5 01/16 08:57 Order name: COVID-19 : Document "Date of Symptom Onset" if Symptomatic. iw 01/16 10:50 Order name: SARS-COV-2 RT PCR; Complete Time: 10:59 EDMS 01/16 11:51 Order name: Lactate Sepsis 2 HR Follow-up EDMS 01/16 12:25 Order name: Comprehensive Metabolic Panel EDMS 01/16 12:25 Order name: Comprehensive Metabolic Panel EDMS 01/16 12:25 Order name: Protime (+INR) EDMS 01/16 12:25 Order name: Protime (+INR) EDMS 01/16 12:25 Order name: PTT, Activated Partial Thromb EDMS 01/16 12:25 Order name: PTT, Activated Partial Thromb EDMS 01/16 12:25 Order name: CBC with Automated Diff EDMS 01/16 12:25 Order name: CBC with Automated Diff EDMS 01/16 08:05 Order name: EKG; Complete Time: 08:06 kdr 01/16 08:05 Order name: Cardiac monitoring; Complete Time: 08:10 kdr 01/16 08:05 Order name: EKG - Nurse/Tech; Complete Time: 08:07 kdr 01/16 08:05 Order name: IV Saline Lock; Complete Time: 08:07 kdr 01/16 08:05 Order name: Labs collected and sent; Complete Time: 08:32 kdr 01/16 08:05 Order name: O2 Per Protocol; Complete Time: 08:07 kdr 01/16 08:05 Order name: O2 Sat Monitoring; Complete Time: 08:07 kdr 01/16 08:07 Order name: Accucheck; Complete Time: 08:13 kdr 01/16 08:07 Order name: IV Saline Lock - Large Bore; Complete Time: 08:13 kdr 01/16 11:21 Order name: Diet Renal; Complete Time: 11:21 ld1 01/16 12:25 Order name: CONS Physician Consult EDMS EC:31 Rate is 113 beats/min. Rhythm is regular, Sinus tachycardia with No ectopy. QRS [place] is kdr Normal. ND interval is normal. QRS interval is normal. Clinical impression: Sinus tachycardia. Administered Medications: 08:29 CANCELLED (Physician Discretion): NS 0.9% (30 ml/kg) 30 ml/kg IV at bolus once; Sepsis ld1 Protocol 08:30 Drug: Zofran (Ondansetron) 4 mg Route: IVP; Site: left hand; ld1 09:00 Follow up: Response: No adverse reaction ld1 08:30 Drug: Pepcid (famotidine) 20 mg Route: IVP; Site: left hand; ld1 09:00 Follow up: Response: No adverse reaction ld1 08:30 Drug: NS 0.9% 1000 ml Route: IV; Rate: 75 ml/hr; Site: left hand; ld1 10:54 Follow up: Response: No adverse reaction ld1 16:46 Follow up: IV Status: Completed infusion ld1 10:10 Not Given (Physician Discretion): Rocephin - (cefTRIAXone) 1 grams IVPB once over 30 ld1 mins; (mix in 50 mL NS) 10:12 Drug: Rocephin (cefTRIAXone) 1 grams Route: IV; Rate: bolus; Site: right hand; ld1 10:40 Follow up: Response: No adverse reaction; IV Status: Completed infusion ld1 Disposition: 01/16/21 09:50 Hospitalization ordered by Carolyn Flores for Inpatient Admission. Preliminary diagnosis are Weakness, Nausea and vomiting, Shortness of breath, Unspecified systolic (congestive) heart failure. - Bed requested for Telemetry/MedSurg (Inpatient). - Status is Inpatient Admission. ld1 - Condition is Fair. - Problem is an acute exacerbation. - Symptoms have improved. Signatures: Dispatcher [employer] EDMS SheriNorma chne Bert Goode MD MD kdr Quin Morelos, RN RN aa5 Dianne Babin RN RN ld1 Corrections: (The following items were deleted from the chart) 08:29 08:07 NS 0.9% (30 ml/kg) 30 ml/kg IV at bolus once; Sepsis Protocol ordered. kdr ld1 09:56 08:58 CORONAVIRUS ordered. EDNH EDMS 13:25 09:50 Hospitalization Ordered by Carolyn Flores MD for Inpatient Admission. Preliminary bd diagnosis is Weakness; Nausea and vomiting; Shortness of breath; Unspecified systolic (congestive) heart failure. Bed requested for Telemetry/MedSurg (Inpatient). Status is Inpatient Admission. Condition is Fair. Problem is an acute exacerbation. Symptoms have improved. kdr 14:03 13:25 01/16/2021 09:50 Hospitalization Ordered by Carolyn Flores MD for Inpatient ld1 Admission. Preliminary diagnosis is Weakness; Nausea and vomiting; Shortness of breath; Unspecified systolic (congestive) heart failure. Bed requested for Telemetry/MedSurg (Inpatient). Status is Inpatient Admission. Condition is Fair. Problem is an acute exacerbation. Symptoms have improved. bd
--- NOTE | 2021-01-16 09:50 | ER ---
Nurse's Notes [facility] Name: Jamie Schulz Jr Age: 70 yrs Sex: Male : 1950 Arrival Date: 01/16/2021 Time: 08:02 Bed 3 Private MD: Diagnosis: Weakness;Nausea and vomiting;Shortness of breath;Unspecified systolic (congestive) heart failure Presentation: 01/16 08:02 Chief complaint: EMS states: nausea and vomiting since 0000 today. Pt's found him aa5 this morning having difficulty breathing and diaphoretic. Initial O2 sat was 87% RA, BP was 102 systolic and HR was 140s, pt was placed on non-rebreather by EMS and given ASA 324 mg and NS 200 cc bolus. Pt denies any pain. Pt reports SOB. Reports last dialysis was Thursday. 08:02 Acuity: KIANNA 2 aa5 08:02 Method Of Arrival: EMS: [facility] aa5 08:02 Coronavirus screen: nausea, shortness of breath, vomiting. Ebola Screen: Patient aa5 negative for fever greater than or equal to 101.5 degrees Fahrenheit, and additional compatible Ebola Virus Disease symptoms. Initial Sepsis Screen: Does the patient meet any 2 criteria? HR > 90 bpm. Does the patient have a suspected source of infection? Yes:. Risk Assessment: Do you want to hurt yourself or someone else? Patient reports no desire to harm self or others. Onset of symptoms was January 16, 2021. Historical: - Allergies: 08:02 No Known Allergies; aa5 - PMHx: 08:02 Anemia; Essential Hypertension; Left Knee Efusion; Renal Disease; Dialysis; aa5 - PSHx: 08:02 Left arm dialysis fistula; aa5 - Immunization history:: Adult Immunizations up to date, Client reports receiving the 2nd dose of the Covid vaccine. - Social history:: Smoking status: Patient denies any tobacco usage or history of. Screenin:05 Abuse screen: Denies threats or abuse. Denies injuries from another. Nutritional bp screening: No deficits noted. Tuberculosis screening: No symptoms or risk factors identified. Fall Risk None identified. Assessment: 08:33 General: Appears in no apparent distress. comfortable, Behavior is calm, cooperative, ld1 appropriate for age. Pain: Denies pain. Neuro: Level of Consciousness is awake, alert, obeys commands, Oriented to person, place, time, situation, Appropriate for age. Cardiovascular: Denies chest pain, Heart tones S1 S2 present Capillary refill < 3 seconds Patient's skin is warm and dry. Rhythm is sinus tachycardia Dialysis shunt: in the dorsal aspect of left forearm, with palpable thrill, with auscultated bruit, Parent/caregiver reports patient has had nausea, shortness of breath, vomiting. Respiratory: Airway is patent Respiratory effort is even, unlabored, Respiratory pattern is regular, symmetrical. GI: Abdomen is flat, non-distended, Reports nausea, vomiting. : Reports he still produces urine. EENT: No signs and/or symptoms were reported regarding the EENT system. Derm: No signs and/or symptoms reported regarding the dermatologic system. Derm: Skin is moist, Skin is normal, Skin temperature is warm. Musculoskeletal: No signs and/or symptoms reported regarding the musculoskeletal system. 09:40 Reassessment: Patient appears in no apparent distress at this time. No changes from ld1 previously documented assessment. Patient and/or family updated on plan of care and expected duration. Pain level reassessed. 10:52 Reassessment: Patient appears in no apparent distress at this time. Patient and/or ld1 family updated on plan of care and expected duration. Pain level reassessed. Patient denies pain at this time. 12:10 Reassessment: Patient appears in no apparent distress at this time. No changes from ld1 previously documented assessment. Patient and/or family updated on plan of care and expected duration. Pain level reassessed. Patient denies pain at this time. 13:00 Reassessment: Patient appears in no apparent distress at this time. No changes from ld1 previously documented assessment. Patient and/or family updated on plan of care and expected duration. Pain level reassessed. Patient denies pain at this time. 14:01 Reassessment: Patient appears in no apparent distress at this time. Patient and/or ld1 family updated on plan of care and expected duration. Pain level reassessed. Patient is alert, oriented x 3, equal unlabored respirations, skin warm/dry/pink. Vital Signs: 08:02 BP 128 / 90; Pulse 115; Resp 18 S; Temp 97.5(O); Pulse Ox 95% on R/A; aa5 08:11 BP 128 / 90; Pulse 115; Resp 24; Temp 97.5(O); Pulse Ox 99% on 2 lpm NC; Weight 81.65 ld1 kg; Height 6 ft. 2 in. (187.96 cm); Pain 0/10; 08:35 BP 125 / 92; Pulse 114; Resp 24; Pulse Ox 100% ; bp 09:30 BP 130 / 93; Pulse 110; Resp 17; Pulse Ox 100% on R/A; ld1 10:30 BP 119 / 88; Pulse 108; Resp 18; Pulse Ox 100% on R/A; ld1 12:10 BP 123 / 95; Pulse 107; Resp 16; Pulse Ox 98% on R/A; ld1 13:30 BP 125 / 92; Pulse 108; Resp 16; Pulse Ox 96% ; bp 14:01 BP 128 / 94; Pulse 101; Resp 18; Pulse Ox 99% on 2 lpm NC; ld1 08:11 Body Mass Index 23.11 (81.65 kg, 187.96 cm) ld1 ED Course: 08:00 Maintain EMS IV. Dressing intact. Good blood return noted. Site clean \\T\\ dry. Gauge \\T\\ bp site: 22 GAUGE R HAND. 08:02 Patient arrived in ED. ld1 08:02 Arm band placed on. aa5 08:04 Bert Noble MD is Attending Physician. kdr 08:05 Patient has correct armband on for positive identification. Bed in low position. Call bp light in reach. Side rails up X2. 08:06 Triage completed. aa5 08:20 Inserted saline lock: 22 gauge in right hand, using aseptic technique. Blood collected. bp 08:33 Maintain EMS IV. Dressing intact. Good blood return noted. Site clean \\T\\ dry. Gauge \\T\\ ld 1 site: 20 G RH. 08:42 XRAY Chest (1 view) In Process Unspecified. EDMS 08:59 Dianne Babin RN is Primary Nurse. ld1 09:37 COVID-19 : Document "Date of Symptom Onset" if Symptomatic. Sent. ld1 09:49 Carolyn Flores MD is Hospitalizing Provider. kdr 14:02 No provider procedures requiring assistance completed. Patient admitted, IV remains in ld1 place. intact, bleeding controlled, No redness/swelling at site. Administered Medications: 08:29 CANCELLED (Physician Discretion): NS 0.9% (30 ml/kg) 30 ml/kg IV at bolus once; Sepsis ld1 Protocol 08:30 Drug: Zofran (Ondansetron) 4 mg Route: IVP; Site: left hand; ld1 09:00 Follow up: Response: No adverse reaction ld1 08:30 Drug: Pepcid (famotidine) 20 mg Route: IVP; Site: left hand; ld1 09:00 Follow up: Response: No adverse reaction ld1 08:30 Drug: NS 0.9% 1000 ml Route: IV; Rate: 75 ml/hr; Site: left hand; ld1 10:54 Follow up: Response: No adverse reaction ld1 16:46 Follow up: IV Status: Completed infusion ld1 10:10 Not Given (Physician Discretion): Rocephin - (cefTRIAXone) 1 grams IVPB once over 30 ld1 mins; (mix in 50 mL NS) 10:12 Drug: Rocephin (cefTRIAXone) 1 grams Route: IV; Rate: bolus; Site: right hand; ld1 10:40 Follow up: Response: No adverse reaction; IV Status: Completed infusion ld1 Outcome: 09:50 Decision to Hospitalize by Provider. kdr 14:02 Admitted to Med/surg accompanied by tech, via stretcher, room 406, with chart, Report ld1 called to DANILO Olmstead. 14:02 Condition: stable 14:03 Patient left the ED. ld1 Signatures: Dispatcher [employer] EDMS Bert Noble MD MD [facility] Quin Morelos RN RN aa5 Bunny Beltran RN RN bp Dianne Babin RN RN ld1
[2021-01-16] MEDS ORDERED: MORPHINE 2 MG/ML SYR IV PRN (12:23)
[2021-01-16] MEDS ORDERED: ACETAMINOPHEN 500 MG TAB PO PRN (12:23)
[2021-01-16] MEDS ORDERED: ONDANSETRON 4 MG/2 ML VIAL IV PRN (12:23)
[2021-01-16] MEDS ORDERED: FUROSEMIDE 40 MG/4 ML VIAL IV ONE (12:25)
[2021-01-16 14:27] VITALS: BMI 23.1
[2021-01-16] MEDS ORDERED: Levofloxacin500mg IV 500 MG/100 ML BAG IV ONE (16:00)
[2021-01-16] MEDS ORDERED: HYDROCODONE/APAP 5/325 MG TAB PO PRN (20:34)
[2021-01-16] MEDS: DOCUSATE NA 100 MG CAP PO SCH (22:38)
[2021-01-17 07:01] LABS: Absolute Lymphocytes (CBC) 1.4 K/uL (0.7-4.9); Basophils % 0.7 % (0-1.3); Hematocrit 27.2 % (39.6-49.0); Lymphocytes % 12.6 % (15.3-44.8); MPV 7.5 fL (7.6-11.3); RBC Red Blood Cell Count 3.45 M/uL (4.33-5.43)
[2021-01-17 07:04] LABS: Protime INR 1.27
[2021-01-17 07:16] LABS: Albumin 2.4 g/dL (3.4-5.0); Bilirubin Total 0.4 mg/dL (0.2-1.0); Protein, Total 7.1 g/dL (6.4-8.2)
--- NOTE | 2021-01-17 08:20 | EKG ---
Test Date: 2021-01-16 Test Time: 07:58:52 Lieutenant Firefighter: DEVON MEASUREMENT RESULTS: Intervals: Rate: 113 IA: 158 QRSD: 92 QT: 364 QTc: 499 [place]: P: 59 IA: 158 QRS: 29 T: 114 INTERPRETIVE STATEMENTS: Sinus tachycardia Possible Left atrial enlargement Septal infarct, age undetermined ST & T wave abnormality, consider lateral ischemia Abnormal ECG Compared to ECG 03/03/2018 12:13:38 Myocardial infarct finding now present ST (T wave) deviation now present Possible ischemia now present Sinus rhythm no longer present Left ventricular hypertrophy no longer present Early repolarization no longer present Prolonged QT interval no longer present Electronically Signed On 01-17-21 08:18:20 CDT by Juan Manuel Wen
[2021-01-17] MEDS: DOCUSATE NA 100 MG CAP PO SCH ×2 (08:23→20:07)
[2021-01-17] MEDS ORDERED: MORPHINE 2 MG/ML SYR IV ONE (10:51)
[2021-01-17] MEDS ORDERED: EPOETIN 4,000 UNIT/ML VIAL IV SCH (11:30)
--- NOTE | 2021-01-17 14:44 | CON ---
Date of Consultation: 01/17/2021 Reason For Consultation: Elevated BUN and creatinine, over volume. 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 Apparently, the patient got sick, so he missed his dialys is. The patient came to the hospital complaining from shortness of breath, found to have over volume . For that reason, we have been consulted. The patient had poor compliant with the fluid restrictio n as outpatient. Past Medical History: Includes; 1.End-stage renal disease. 2.Hypertension. 3.Diabetes complicated with neuropathy, retinopathy, and nephropathy. Past Surgical History: Include AV fistula. Family History: Positive for diabetes and hypertension. Social History: Denies smoking. Denies drinking. Denied drug abuse. Review of Systems: Head and Neck: No red eye. No ear pain. GI: Has nausea. No vomiting. : No polyuria. No dysuria. No hematuria. SURFACE WATER TECHNICIAN: Not applicable. Respiratory: Has shortness of breath. Cardiovascular: Has chest tightness. Endocrine: No polydipsia. Skin: No rash. Neuro: Has neuropathy. Musculoskeletal: Has low back pain. Physical Examination: Vital Signs: When I saw, the patient blood pressure 118/72, pulse of 105, afebrile. Chest: Crackles bilateral. Heart: S1, S2. Systolic murmur. Abdomen: Soft, nontender. Extremity: Trace edema. Neurologic: Alert. No focality. Vascular: AV fistula, left radial cephalic. Laboratory Data: WBC 11.4, H and H 9.3/27.2. Sodium 140, potassium 4, bicarb 28, BUN 31, creatinine 6.5, calcium 8.5. BNP 136. Current Medications: The patient on include; 1.Levaquin. 2.Heparin. 3.Zofran. 4.Docusate. Assessment And Plan: 1.End-stage renal disease, over volume. We took the patient for dialysis yesterday. We managed to remove 2400. We will do another session of dialysis today and we will challenge the patient. 2.Hypertension. We will utilize blood pressure for more ultrafiltration. 3.Secondary hyperparathyroidism. We will follow up the lab. 4.Anemia of chronic kidney disease. We will resume PARAS. 5.Over volume. The patient is going to be challenged with extra treatment today also. 6.Diabetes as by primary. The patient will be cleared from the Renal standpoint for discharge plann ing after dialysis today. PENELOPE Voice ID: [id number] Report ID: [id number]
--- NOTE | 2021-01-18 00:54 | P.HP ---
Certification for Inpatient Patient admitted to: Inpatient With expected LOS: >2 Midnights Patient will require the following post-hospital care: None Practitioner: I am a practitioner with admitting privileges, knowledge of patient current condition, hospital course, and medical plan of care. Services: Services provided to patient in accordance with Admission requirements found in Title 42 Section 412.3 of the Code of Federal Regulations Patient History Date of Service: 01/16/21 Reason for admission: Respiratory distress; hypoxemia; pulmonary edema; ESRD History of Present Illness: Patient is a 70-year-old gentleman who presents to the hospital with shortness of breath. Patient missed hemodialysis as he was not feeling well the other day. He came in with difficulty breathing. He was hypoxic with oxygen saturations in the 70 percentile. He was placed on 3 L and his oxygen saturations were in the low 90s. Patient's chest x-ray revealed pulmonary edema. Patient also had bilateral infiltrates. Patient possibly has pneumonia. Will go ahead and dialyze the patient and repeat chest x-ray. If bilateral infiltrates have resolved the most likely related to pulmonary edema. Patient also has a longstanding history of tobacco use inches quit smoking about a year ago. Patient has 50+ pack-year smoking history. Patient also had moderate aortic stenosis is a couple years ago. Would check an echocardiogram to further assess cardiac functioning. Patient does have some dyspnea on exertion as well as PND and orthopnea. Patient may have congestive heart failure. Will also evaluate for pulmonary hypertension. Allergies No Known Allergies Allergy (Unverified 03/03/18 18:12) Home Medications: Aspirin [Aspirin EC 81 MG] 81 mg PO DAILY 03/03/18 Atorvastatin Calcium 20 mg PO DAILY 03/03/18 Docusate Sodium [Colace] 100 mg PO BID 03/03/18 Hydrocodone/Acetaminophen [Lorcet 5-325 mg Tablet] 1 each PO Q6H PRN 03/03/18 Magnesium Oxide [Mag 0X*] 400 mg PO DAILY 03/03/18 Nortriptyline HCl 25 mg PO BEDTIME 03/03/18 carvediloL [Carvedilol] 25 mg PO BID 03/03/18 Amlodipine [Norvasc*] 10 mg PO DAILY #30 tab 03/12/18 Hydralazine [Apresoline*] 25 mg PO TID #90 tab 03/12/18 Pantoprazole [Protonix Tab*] 40 mg PO DAILY #30 tab 03/12/18 Spironolactone [Aldactone*] 50 mg PO DAILY #60 tab 03/12/18 - Past Medical/Surgical History Has patient received pneumonia vaccine in the past: Yes Diabetic: Yes -: Diabetes -: HTN -: Neuropathy -: R eye deficiency -: LFA Fistula for dialysis - Family History Father Family History: Reviewed- Non-Contributory - Social History Smoking Status: Former smoker (Quit 1 year ago; 50 pack-years tobacco history) Alcohol use: No CD- Drugs: No Caffeine use: Yes Place of Residence: Home Review of Systems 10-point ROS is otherwise unremarkable Physical Examination - Vital Signs Temperature: 98.9 F Blood Pressure: 127/79 Pulse: 108 Respirations: 20 Pulse Ox (%): 95 - Physical Exam General: Alert, In no apparent distress, Oriented x3, Mild distress HEENT: Atraumatic, PERRLA, Mucous membr. moist/pink, EOMI, Sclerae nonicteric Neck: Supple, 2+ carotid pulse no bruit, No LAD, Without JVD or thyroid abnormality Respiratory: Diminished, Crackles/rales, Rhonchi/gurgles Cardiovascular: Regular rate/rhythm, Normal S1 S2, Systolic murmur Gastrointestinal: Normal bowel sounds, Soft and benign, Non-distended, No tenderness Musculoskeletal: No clubbing, No swelling, No tenderness Integumentary: No rashes Neurological: Normal gait, Normal speech, Normal tone, Sensation intact, Cranial nerves 3-12 intact, Normal affect, Abnormal strength Lymphatics: No axilla or inguinal lymphadenopathy Assessment & Plan - Problems (Diagnosis) (1) Respiratory distress Current Visit: Yes Status: Acute (2) Hypoxemia Current Visit: Yes Status: Acute (3) Pulmonary edema Current Visit: Yes Status: Acute (4) Bilateral pneumonia Current Visit: Yes Status: Acute (5) History of tobacco abuse Current Visit: Yes Status: Acute (6) Congestive heart failure Current Visit: Yes Status: Acute Qualifiers: Heart failure type: combined systolic and diastolic Heart failure chronicity: acute Qualified Code(s): I50.41 - Acute combined systolic (congestive) and diastolic (congestive) heart failure (7) End stage renal disease Current Visit: No Status: Acute (8) Hypertension Onset Date: 03/04/18 Current Visit: No Status: Chronic Qualifiers: Hypertension type: essential hypertension Qualified Code(s): I10 - Essential (primary) hypertension (9) Chronic obstructive pulmonary disease (COPD) Current Visit: Yes Status: Acute Qualifiers: COPD type: chronic bronchitis - Plan 1. Echocardiogram 2. Consult Nephrology for hemodialysis 3. Repeat chest x-ray 4. Monitor volume status closely 5. Strict blood pressure control 6. Strict I's and O's 7. Inhaler therapy; make give steroids for COPD 8. Daily weights 9. Education regarding diet and treatment of congestive heart failure 10. May need CT of the chest for evaluation of chronic verses acute pulmonary issues Discharge Plan: Home Plan to discharge in: Greater than 2 days - Advance Directives Does patient have a Living Will: No Does patient have a Durable POA for Healthcare: No - Code Status/Comfort Care Code Status Assessed: Yes Code Status: Full Code Critical Care: No Time Spent Managing PTS Care (In Minutes): 45
[2021-01-18] MEDS ORDERED: ALBUTEROL 2.5 MG/3 ML NEB SOL NEB PRN (01:07)
[2021-01-18] MEDS ORDERED: IPRATROPIUM BROM 0.5MG/2.5ML NEB PRN (01:07)
--- NOTE | 2021-01-18 01:07 | P.PN ---
Subjective Date of Service: 01/17/21 Patient continues to improve. Status post hemodialysis again today. However, patient remains hypoxic. FiO2 of 80% on room air. Will get an echocardiogram. Patient with aortic valve murmur. Patient also with a history of tobacco abuse and most likely has COPD. Give a dose of IV steroids and may start inhaler therapy. Review of Systems 10-point ROS is otherwise unremarkable Physical Examination - Vital Signs Temperature: 98.9 F Blood Pressure: 127/79 Pulse: 108 Respirations: 20 Pulse Ox (%): 95 - Physical Exam General: Alert, In no apparent distress, Oriented x3 Neck: JVD not distended Respiratory: Diminished, Crackles/rales Cardiovascular: Regular rate/rhythm, Normal S1 S2, Systolic murmur Gastrointestinal: Normal bowel sounds, Soft and benign, Non-distended, No tenderness Musculoskeletal: No clubbing, No swelling, No tenderness Neurological: Normal strength at 5/5 x4 extr, Sensation intact, Cranial nerves 3 -12 intact, Normal affect - Studies Medications List Reviewed: Yes Assessment & Plan - Problems (Diagnosis) (1) Respiratory distress Current Visit: Yes Status: Acute (2) Hypoxemia Current Visit: Yes Status: Acute (3) Pulmonary edema Current Visit: Yes Status: Acute (4) Bilateral pneumonia Current Visit: Yes Status: Acute (5) History of tobacco abuse Current Visit: Yes Status: Acute (6) Congestive heart failure Current Visit: Yes Status: Acute Qualifiers: Heart failure type: combined systolic and diastolic Heart failure chronicity: acute Qualified Code(s): I50.41 - Acute combined systolic (congestive) and diastolic (congestive) heart failure (7) End stage renal disease Current Visit: No Status: Acute (8) Hypertension Onset Date: 03/04/18 Current Visit: No Status: Chronic Qualifiers: Hypertension type: essential hypertension Qualified Code(s): I10 - Essential (primary) hypertension (9) Chronic obstructive pulmonary disease (COPD) Current Visit: Yes Status: Acute Qualifiers: COPD type: chronic bronchitis - Plan Continue with plan of care as mentioned below: 1. Echocardiogram pending 2. Continue with hemodialysis per Nephrology. Repeat hemodialysis tomorrow and anticipate discharge home once home oxygen is arranged 3. CT of the chest 4. Monitor volume status closely 5. Strict blood pressure control 6. Strict I's and O's 7. Inhaler therapy; make give steroids for COPD 8. Daily weights 9. Education regarding diet and treatment of congestive heart failure 10. Physical therapy evaluation Discharge Plan: Home Plan to discharge in: Greater than 2 days - Advance Directives Does patient have a Living Will: No Does patient have a Durable POA for Healthcare: No - Code Status/Comfort Care Code Status: Full Code Critical Care: No Time Spent Managing PTS Care (In Minutes): 35
[2021-01-18 04:28] LABS: Albumin 2.5 g/dL (3.4-5.0); Phosphorus 4.2 mg/dL (2.5-4.9); Potassium 3.6 mmol/L (3.5-5.1)
[2021-01-18] MEDS: METHYLPREDNISOLONE 125 MG INJ IV SCH ×2 (05:28→11:22)
[2021-01-18] MEDS ORDERED: METOPROLOL TAR 25 MG TAB PO SCH (06:00)
[2021-01-18] MEDS ORDERED: PANTOPRAZOLE 40MG TABLET PO SCH (06:30)
--- NOTE | 2021-01-18 07:34 | P.PN ---
Subjective Date of Service: 01/18/21 Chief Complaint: Respiratory distress; hypoxemia; pulmonary edema; ESRD Subjective: No new changes Physical Examination - Vital Signs Temperature: 98.2 F Blood Pressure: 131/82 Pulse: 106 Respirations: 20 Pulse Ox (%): 94 - Physical Exam General: In no apparent distress HEENT: Atraumatic, Normocephalic Neck: Supple Respiratory: Other (symmetric chest expansion) Cardiovascular: No rubs, No murmurs Gastrointestinal: Soft and benign, Non-distended Integumentary: Other (normal temperature) Neurological: Normal speech, Normal tone Urinary: Other (no bladder distention) External genitalia: Deferred Rectal: Deferred - Studies Medications List Reviewed: Yes Assessment And Plan - Plan 1. End-stage renal disease, over volume. HD today. monitor renal panel. 2. Hypertension. BP okay. Continue current regimen. 3. Secondary hyperparathyroidism. monitor calcium and phosphorus. Recheck intact PTH and 25 OH D level as an outpatient. 4. Anemia of chronic kidney disease. continue PARAS. 5. volume overload. Fluid removal via HD as above. 6. DM2. Mngt per primary team.
[2021-01-18] MEDS: HYDRALAZINE HCL 25 MG TABLET PO SCH ×2 (08:47→13:21)
[2021-01-18] MEDS: DOCUSATE NA 100 MG CAP PO SCH (08:47)
[2021-01-18] MEDS ORDERED: MAGNESIUM OXIDE 400 MG TAB PO SCH (09:00)
[2021-01-18] MEDS ORDERED: ASPIRIN EC 81 MG TAB PO SCH (09:00)
[2021-01-18] MEDS ORDERED: ATORVASTATIN 20 MG TAB PO SCH (09:00)
[2021-01-18] MEDS ORDERED: AMLODIPINE 10 MG TAB PO SCH (09:00)
[2021-01-18] MEDS ORDERED: SPIRONOLACTONE 25 MG TABLET PO SCH (09:00)
--- NOTE | 2021-01-18 09:20 | RAD REPORT ---
EXAM DESCRIPTION: CT - Thorax W/ Con CLINICAL HISTORY: Chest pain Hypoxemia COMPARISON: Chest Single View dated 01/16/2021 FINDINGS: Moderate airspace opacities are present in both perihilar regions and greatest in the uppe r lobes probably representing pulmonary edema. Small to moderate bilateral pleural effusions. No pneu mothorax. No axillary, mediastinal or hilar adenopathy. No concerning bony finding. No gross upper abdominal finding. All CT scans are performed using dose optimization technique as appropriate and may include automated exposure control or mA/KV adjustment according to patient size. IMPRESSION: Moderate CHF versus volume overload pattern is noted.
[2021-01-18 12:27] VITALS: O2SAT 96
[2021-01-18] MEDS ORDERED: Levofloxacin 250mg IV 250 MG/50 ML BAG IV SCH (16:00)
[2021-01-18 20:03] VITALS: BP 131/82; TEMP 98.2
[2021-01-18] MEDS ORDERED: NORTRIPTYLINE HCL 25 MG CAP PO SCH (21:00)
--- NOTE | 2021-01-21 08:27 | ECHO ---
HEIGHT: 6 ft 2 in WEIGHT: 180 lb 0 oz DATE OF STUDY: 01/18/[address]: Carolyn Flores MD 2-DIMENSIONAL: YES M.MODE: YES DOPPLER: YES COLOR FLOW: YES TDS: NO PORTABLE: NO DEFINITY: NO BUBBLE STUDY: NO DIAGNOSIS: CONGESTIVE HEART FAILURE/ PULMONALRY HYPERTENSION CARDIAC HISTORY: CATHERIZATION: NO SURGERY: NO PROSTHETIC VALVE: NO PACEMAKER: NO MEASUREMENTS (cm) DIASTOLIC (NORMALS) SYSTOLIC (NORMALS) IVSd 1.1 (0.6-1.2) LA Diam 4.2 (1.9-4.0) LVEF 35-40% LVIDd 5.6 (3.5-5.7) LVIDs 4.4 (2.0-3.5) %FS 23% LVPWd 1.2 (0.6-1.2) Ao Diam 2.4 (2.0-3.7) 2 DIMENSIONAL ASSESSMENT: RIGHT ATRIUM: NORMAL LEFT ATRIUM: DILATED RIGHT VENTRICLE: NORMAL LEFT VENTRICLE: NORMAL SIZE TRICUSPID VALVE: NORMAL MITRAL VALVE: MITRAL ANNULAR CALCIFICATION PULMONIC VALVE: NORMAL AORTIC VALVE: SCLEROSIS PERICARDIAL EFFUSION: NONE AORTIC ROOT: NORMAL LEFT VENTRICULAR WALL MOTION: MODERATE-SEVERE GLOBAL HYPOKINESIS. DOPPLER/COLOR FLOW: MILD TRICUSPID REGURGITATION. COMMENTS: MODERATE-SEVERE GLOBAL HYPOKINESIS. EJECTION FRACTION 35-40%. MILD TRICUSPID REGURGITATION - NORMAL RIGHT VENTRICULAR SYSTOLIC PRESSURE. MITRAL ANNULAR CALCIFICATION. AORTIC SCLEROSIS. TECHNOLOGIST: SUJATHA CEBALLOS
== END 2021-01-18 18:05 | disposition home or self-care (01) | DRG 291 ==
LOC: ER 08:00 → ERHOLD 12:23 → INTOOBSV 12:23 → OBSVTOIN 12:23 → 4TH 13:44 → OBSVTOIN 01-18 00:48
PROVIDERS: ADMIT Hospitalist; ATTEND Hospitalist
PROC: 5A1D70Z Performance of Urinary Filtration, Intermittent, Less than 6 Hours Per Day (ICD-10-PCS; principal; 2021-01-16)
PROC: 5A1D70Z Performance of Urinary Filtration, Intermittent, Less than 6 Hours Per Day (ICD-10-PCS; 2021-01-17)
PROC: 5A1D70Z Performance of Urinary Filtration, Intermittent, Less than 6 Hours Per Day (ICD-10-PCS; 2021-01-18)
DX: I13.2 Hypertensive heart and chronic kidney disease with heart failure and with stage 5 chronic kidney disease, or end stage renal disease (principal); N18.6 End stage renal disease; I50.41 Acute combined systolic (congestive) and diastolic (congestive) heart failure; J18.9 Pneumonia, unspecified organism; N25.81 Secondary hyperparathyroidism of renal origin; J44.0 Chronic obstructive pulmonary disease with (acute) lower respiratory infection; J44.1 Chronic obstructive pulmonary disease with (acute) exacerbation; E11.22 Type 2 diabetes mellitus with diabetic chronic kidney disease; E11.40 Type 2 diabetes mellitus with diabetic neuropathy, unspecified; E11.21 Type 2 diabetes mellitus with diabetic nephropathy; E11.319 Type 2 diabetes mellitus with unspecified diabetic retinopathy without macular edema; D63.1 Anemia in chronic kidney disease; R06.03 Acute respiratory distress; R09.02 Hypoxemia; I35.0 Nonrheumatic aortic (valve) stenosis; Z87.891 Personal history of nicotine dependence; Z20.822 Contact with and (suspected) exposure to COVID-19; Z99.2 Dependence on renal dialysis
CPT/HCPCS: 36415; 71045; 71260; 80048; 80053; 80069; 80076; 82150; 82550; 82553; 82947; 83605; 83690; 83735; 83880; 84145; 84484; 85025; 85610; 85730; 87040; 90935; 93005; 93306; 96361; 96365; 96375; 99285; G0257; G0378; J1644; J1940; J2405; J2930; J7030; Q9967; U0003